=== PATIENT | female | born 1985 | race Caucasian/White ===

== ENCOUNTER 2017-09-04 12:40 | Emergency (ER) | payer MEDICAID, SELFPAY ==
[2017-09-04 12:42] VITALS: BP 117/71; PULSE 83; RESP 18; TEMP 36.6; O2SAT 100; BMI 23.3
--- NOTE | 2017-09-04 13:30 | US_ITS ---
STUDY: ULTRASOUND TRANSVAGINAL CLINICAL: Female, 32 years old. Bleeding TECHNIQUE: Transvaginal COMPARISON: None. FINDINGS: Normal uterine size measuring 9.1 x 5.7 x 4.3 cm in maximal craniocaudal dimension. There are no myometrial masses. Normal endometrial thickness measuring 9 mm. Endometrial echoes are hyperechoic. There are no endometrial masses, and there is no fluid in the endometrial cavity. Nabothian cyst of the uterine cervix. Normal right ovary, measuring 3.4 x 1.9 x 1.9 cm. There are multiple follicles without a dominant cyst. Normal left ovary, measuring 3.0 x 1.7 x 1.5 cm. There are multiple follicles without a dominant cyst. There is mild free fluid in the pelvis. Polycystic ovary disease: No. US/Transvaginal Non- IMPRESSION: Mild free fluid, which could be physiologic. No other significant finding. Electronically Signed: James Golden MD at 15:41 EDT , Service support ,
--- NOTE | 2017-09-04 13:33 | ED.DCSUM_ITS ---
- ER Visit Summary Date of Service: 09/04/17 Chief Complaint: Vaginal bleeding and History of Present Illness: The patient is a 32 F presenting with vaginal bleeding which started today. She states this initially was similar to her period and is now only spotting. She believes she is 3-4 weeks . She is Ab1. She took a home test last week which was positive. Her last she miscarried at [address] Costa. She denies pelvic pain. Denies other complaints. Physical Examination: Vitals are stable. Patient is afebrile. Alert no acute distress. HEENT exam is unremarkable. Neck is supple. Lungs are clear and equal bilaterally. Heart is regular rate and rhythm. Abdomen is soft nontender nondistended. No guarding or rebound Extremities are unremarkable. Skin is warm and dry. No focal neurologic deficit. Remainder of exam is unremarkable. Emergency Department Course and Treatment: HCG quant 4. Blood type A negative. Ultrasound shows mild free fluid which could be physiologic with no other acute finding. Patient declined pelvic exam in the emergency department. Discussed with Dr. Costa, he does not feel she needs rhogam. She will follow- up in the office. Advised return ED if worsening complaints. Disposition: Discharge home Impression: Threatened miscarriage This note was generated with [employer] dictation software. It may contain incorrect words, spelling, and punctuation that were not noted in review of the chart prior to signing ED Disposition - Plan for ED Patient: Chief Complaint: Vag Bld, Preg Referrals: Care Physician,No Primary [Primary Care Provider] -
[2017-09-04 14:23] LABS: hCG Titer Quant., Serum 4 mIU/mL (<9 non-preg)
--- NOTE | 2017-09-04 16:38 | ED.DEP ---
ED Disposition - Plan for ED Patient: Chief Complaint: Vag Bld, Preg Instructions: ED Miscarriage Poss Referrals: Care Physician,No Primary [Primary Care Provider] - Frankie Costa MD [STAFF PHYSICIAN] -
[2017-09-04 16:44] VITALS: BP 125/67; PULSE 71; RESP 16; O2SAT 98
== END 2017-09-04 16:45 | disposition home or self-care (01) ==
PROVIDERS: Emergency Provider Emergency Medicine
DX: O20.0 Threatened abortion (principal); Z72.0 Tobacco use
CPT/HCPCS: 36415; 76830; 84702; 86900; 93976; 99282

== ENCOUNTER → 2017-11-14 15:00 | Outpatient (CLI) | payer MEDICAID, SELFPAY ==
--- NOTE | 2017-11-14 15:00 | DT_ITS ---
This patient was seen during an EMR downtime November 12, 2017 - November 19, 2017. This patient may have a combination of paper and electronic documentation or all paper documentation. All documentation is viewable within the e-chart portion of [employer] for each patient visit.
[2017-11-17 09:48] LABS: Chlamydia Trachomatis by PCR Negative (Negative); Neisserai gonorrhoeae by PCR Negative (Negative); Probe Check PASS; Sample Adequacy Control PASS; Specimen Processing Control PASS
[2017-11-27 15:41] LABS: HPV APTIMA, High Risk Negative (Negative)
== END ==
PROVIDERS: Visit Provider Obstetrics & Gynecology
DX: Z12.4 Encounter for screening for malignant neoplasm of cervix (principal); Z11.3 Encounter for screening for infections with a predominantly sexual mode of transmission; N91.2 Amenorrhea, unspecified
CPT/HCPCS: 36415; 84702; 87491; 87591; 88175; G0145

== ENCOUNTER → 2017-11-21 15:25 | Outpatient (CLI) | payer MEDICAID, SELFPAY ==
[2017-11-21 17:04] LABS: Absolute Lymphocyte Count 1.68 X10^3/ul (0.83-4.51); Absolute Neutrophil Count 5.7 X10^3/uL (2.0-7.7); Basophil# 0.03 X10^3/uL; Basophil% 0.4 % (0-1); Eosinophil# 0.23 X10^3/uL; Eosinophils% 2.8 % (0-5); Hematocrit 39.1 % (37-47); Hemoglobin 13.2 g/dl (12.0-15.0); Lymphocyte # 1.68 X10^3/ul (4.0); Lymphocyte % 20.1 % (19-41); Mean Corp Hgb Conc 33.8 g/gl (32-36); Mean Corpuscular Hgb 29.1 pg (27.0-32.0); Mean Corpuscular Volume 86.3 fL (81-99); Monocyte# 0.67 X10^3/uL; Neutrophil # 5.73 X10^3/uL (2.7-7.7); Neutrophil % 68.5 % (47-70); Platelet Count 230 K/mm3 (150-450); RBC Distribution Width CV 13.8 % (11.6-14.6); RBC Distribution Width SD 43.6 fl (35.1-43.9); Red Blood Count 4.53 M/mm3 (4.2-5.4); White Blood Count 8.4 K/mm3 (4.4-11.0)
[2017-11-21 17:06] LABS: Color, Urine Yellow (Yellow); Glucose, Dipstick Normal (Normal); Ketone-Dipstick 5 mg/dl (Negative); Leukocyte Esterase-Dipstick 500 /ul (Negative); Nitrite-Dipstick Positive (Negative); Occult Blood-Urine 10 /ul (Negative); Protein-Dipstick 15 mg/dl (Negative); Specific Gravity, Urine 1.025 (1.002-1.030); Urine Bilirubin Dipstick Negative (Negative); Urine Clarity Sl. Cloudy (Clear); Urine Urobilinogen 1 mg/dl (Normal)
[2017-11-21 17:10] LABS: POSITIVE COUNT NO; POSITIVE DIFFERENTIAL NO; POSITIVE MORPHOLOGY NO
[2017-11-21 17:22] LABS: Thyroid Stim Hormone (TSH) 0.84 uIU/mL (0.358-3.74)
[2017-11-21 17:48] LABS: Amphetamine Urine VISTA NEGATIVE (<1000 ng/mL); Barbiturate Urine VISTA NEGATIVE (< 200 ng/mL); Benzodiazepine Urine VISTA NEGATIVE (< 200 ng/mL); Cocaine Urine VISTA NEGATIVE (< 300 ng/mL); Ecstacy Urine VISTA NEGATIVE (< 500 ng/mL); Methadone Urine VISTA NEGATIVE (< 300 ng/mL); PCP Urine VISTA NEGATIVE (< 25 ng/mL); THC Urine VISTA NEGATIVE (< 50 ng/mL); Vista UDS pH Range 5
[2017-11-21 17:49] LABS: COTININE Drug Screen Negative (<200 ng/mL)
[2017-11-21 18:04] LABS: HIV - WCH Non-Reactive (Nonreactive)
[2017-11-23 03:47] LABS: Prenatal RPR NONREACTIVE (NONREACTIVE)
[2017-11-23 07:07] LABS: HEPATITIS B SURFACE AG Negative (Negative); Hep C Antibodies <0.1 s/co ratio (0.0-0.9)
== END ==
PROVIDERS: Visit Provider Obstetrics & Gynecology
DX: Z34.81 Encounter for supervision of other normal pregnancy, first trimester (principal)
CPT/HCPCS: 36415; 80307; 81002; 84443; 85025; 86703; 86762; 86803; 87340

== ENCOUNTER → 2018-03-13 14:13 | Outpatient (CLI) | payer MEDICAID, SELFPAY ==
[2018-03-13 16:20] LABS: Hematocrit 31.8 % (37-47); Hemoglobin 10.6 g/dl (12.0-15.0); Mean Corp Hgb Conc 33.3 g/gl (32-36); Mean Corpuscular Hgb 29.9 pg (27.0-32.0); Mean Corpuscular Volume 89.6 fL (81-99); Mean Platelet Vol. 10.3 fl (6.2-12.0); Platelet Count 255 K/mm3 (150-450); RBC Distribution Width CV 13.4 % (11.6-14.6); RBC Distribution Width SD 42.6 fl (35.1-43.9); Red Blood Count 3.55 M/mm3 (4.2-5.4); White Blood Count 11.8 K/mm3 (4.4-11.0)
[2018-03-13 16:21] LABS: Scan Indicated on CBC? Y/N NO
[2018-03-13 16:29] LABS: Glucose Challenge Gest 1H 50g 95 mg/dL (70-140)
== END ==
PROVIDERS: Visit Provider Obstetrics & Gynecology
DX: Z34.82 Encounter for supervision of other normal pregnancy, second trimester (principal)
CPT/HCPCS: 36415; 82950; 85027; 86850

== ENCOUNTER 2018-03-16 02:13 | Emergency (ER) | payer MEDICAID, SELFPAY ==
[2018-03-16 02:14] VITALS: BP 144/60; PULSE 114; RESP 16; TEMP 37.4; O2SAT 98; BMI 31.1
[2018-03-16 03:39] LABS: Red Blood Cells-Urine 0 SEEN /hpf (0-5); White Blood Cells 0 SEEN /hpf (0-5)
[2018-03-16 03:40] LABS: Color, Urine Yellow (Yellow); Glucose, Dipstick Normal (Normal); Ketone-Dipstick Negative (Negative); Leukocyte Esterase-Dipstick 100 /ul (Negative); Nitrite-Dipstick Positive (Negative); Occult Blood-Urine 10 /ul (Negative); Protein-Dipstick 30 mg/dl (Negative); Specific Gravity, Urine 1.015 (1.002-1.030); Urine Bilirubin Dipstick Negative (Negative); Urine Clarity Cloudy (Clear); Urine Urobilinogen Normal (Normal)
[2018-03-16 03:55] VITALS: BP 141/63; PULSE 106; RESP 18; TEMP 37.1; O2SAT 95
[2018-03-16 03:55] LABS: Bacteria 3+ /hpf (None Seen); Mucous, Urine 2+ /hpf (<or=2+); Squamous Epithelial Cells - UA 10-25 SEEN /hpf (5-10)
--- NOTE | 2018-03-16 04:04 | ED.VISSUMM ---
- ER Visit Summary Date of Service: 03/16/18 Chief Complaint: Shivering and fever History of Present Illness: The patient is a 33 F who is Ab1 at 28 weeks. Presents with shivering and fevers overnight. No other associated symptoms. Patient was exposed to her significant other who had an upper respiratory infection with fevers. Denies any issues with the . She does have positive movements. She has had regular OB care. Denies any abdominal pain, bleeding, or discharge. Physical Examination: Blood pressure 144/60. Heart rate 114. Otherwise vitals unremarkable. Patient is sitting upright and appears comfortable. Alert and oriented. Calm and cooperative. Skin appears normal in color without pallor or diaphoresis. HEENT exam unremarkable. Heart slightly tachycardic but regular. Lungs clear in all finley. Abdomen gravid and nontender. Extremities nontender with no edema. Test Results: Influenza test was negative. Urinalysis showed bacteria, positive nitrites, positive leuk esterase, but white count and red cell counts were 0. Urine culture was sent. Emergency Department Course and Treatment: Patient has had shivering and a subjective fever for few hours tonight. She really has no other symptoms. Because of her , I did check an influenza test and urinalysis. We will send a culture. I will cover with Macrobid given her bacteriuria. Her repeat blood pressure was 141/63 and heart rate was 106. She continues to appear well. She is still having movements. I counseled her about her blood pressure. She has not had hypertension in the past. No history of gestational hypertension. No history of preeclampsia or eclampsia. No other concerning signs or symptoms like edema, headache, vision changes, or abdominal pain. I believe she is appropriate for outpatient follow-up regarding her blood pressure. She was advised to call her OB. Patient was also advised to monitor for new or worsening symptoms. Return for any issues. Treatment Plan: As above Disposition: Discharged Impression: 1. Bacteriuria 2. Hypertension This note was generated with [employer] software. It may contain incorrect words, spelling, and punctuation that were not noted in review of the chart prior to signing ED Disposition - Plan for ED Patient: Chief Complaint: General Illness Referrals: Care Physician,No Primary [Primary Care Provider] -
--- NOTE | 2018-03-16 04:11 | DCINST.ED_ITS ---
ED Disposition - Plan for ED Patient: Chief Complaint: General Illness Instructions: ED Fever Unconf Cause Prescriptions: Nitrofurantoin Macrocrystals [Macrobid] 100 mg PO Q12 #14 cap Additional Instructions: follow up with your instructor robotics
[2018-03-16] MEDS: Nitrofurantoin Macrocrystals 100 MG Capsule PO (04:15)
== END 2018-03-16 04:30 | disposition home or self-care (01) ==
PROVIDERS: Emergency Provider Emergency Medicine; Family Provider Obstetrics & Gynecology
DX: O26.893 Other specified pregnancy related conditions, third trimester (principal); R82.71 Bacteriuria; O16.3 Unspecified maternal hypertension, third trimester; Z3A.28 28 weeks gestation of pregnancy; Z87.891 Personal history of nicotine dependence
CPT/HCPCS: 81001; 87086; 87088; 87804; 99284

== ENCOUNTER 2018-03-16 18:44 | Emergency (ER) | payer MEDICAID, SELFPAY ==
[2018-03-16 18:45] VITALS: BP 130/69; PULSE 138; RESP 17; TEMP 37.6; O2SAT 95
[2018-03-16] MEDS: 0.9% Normal Saline 1,000 ML 999 ML IV (19:10)
[2018-03-16 19:41] LABS: Absolute Lymphocyte Count 0.92 X10^3/ul (0.83-4.51); Absolute Neutrophil Count 13.6 X10^3/uL (2.0-7.7); Basophil# 0.02 X10^3/uL; Basophil% 0.1 % (0-1); Differential Indicated SCAN CRITERIA MET; Eosinophil# 0.03 X10^3/uL; Eosinophils% 0.2 % (0-5); Hemoglobin 10.4 g/dl (12.0-15.0); Lymphocyte # 0.92 X10^3/ul (4.0); Lymphocyte % 5.7 % (19-41); Mean Corp Hgb Conc 33.5 g/gl (32-36); Mean Corpuscular Hgb 29.2 pg (27.0-32.0); Mean Corpuscular Volume 87.1 fL (81-99); Mean Platelet Vol. 9.3 fl (6.2-12.0); Monocyte# 1.65 X10^3/uL; Monocyte% 10.1 % (0-10); Neutrophil % 83.6 % (47-70); POSITIVE COUNT NO; POSITIVE DIFFERENTIAL YES; POSITIVE MORPHOLOGY NO; Platelet Count 222 K/mm3 (150-450); RBC Distribution Width CV 13.5 % (11.6-14.6); Red Blood Count 3.56 M/mm3 (4.2-5.4); White Blood Count 16.3 K/mm3 (4.4-11.0)
[2018-03-16 19:48] LABS: BUN 7 mg/dL (7-18); EST Glomerular Filtration Rate 100 mL/min (>60); Estimated Creatinine Clearance 100.94 ml/min; Glucose 126 mg/dL (74-106)
[2018-03-16 19:49] LABS: Anion Gap 9 (5-15); BUN/Creat Ratio 9.9 RATIO (10-20); Calcium,Total 8.6 mg/dL (8.5-10.1); Chloride 100 mmol/L (98-107); Est Glom Filt Rate - Afr Amer 121 mL/min (>60); Potassium 3.4 mmol/L (3.5-5.1); Sodium Level 132 mmol/L (136-145)
--- NOTE | 2018-03-16 20:08 | ED.VISSUMM ---
- ER Visit Summary Date of Service: 03/16/18 Chief Complaint: Fever History of Present Illness: The patient is a 33 F who presents with fever. She was seen last night and diagnosed with a urinary tract infection. She was given Macrobid. Her temperature tonight was 101.4 degrees. She has been using Tylenol at home. She is currently 28 weeks gestation. She is G6, P4 Ab1. She states that she has been having some chills. She denies any pulmonary symptoms like cough or sputum production. No abdominal pain. She does have a history of a placental abruption she states that the physician last night told her it could either be a combination of the UTI or possibly a viral syndrome. Physical Examination: Vital signs reviewed. HEENT exam unremarkable. Heart is tachycardic and regular rhythm without murmurs. Lungs are clear all station bilaterally. Abdomen soft with no tenderness. It is gravid. exam is deferred. Skin exam normal. Neurologic exam normal. Test Results: White blood cell count 16.3, hemoglobin 10.4, sodium 132, potassium 3.4, glucose 126 Emergency Department Course and Treatment: Patient does have a leukocytosis. Because of the urinary tract infection I will give her 1 dose of IV Rocephin here. She will continue the Macrobid at home. It is definitely a possibility that this is still a viral illness. I do not feel she requires admission to the hospital as she looks very well. She has no abdominal pain and has had good movements. I do not feel that this represents any intra-abdominal pathology. She will need to follow-up with her SEPTIC TANK SETTER. She will continue Tylenol for the fever at home. Treatment Plan: [] Disposition: Discharge Impression: UTI, fever This note was generated with [employer] dictation software. It may contain incorrect words, spelling, and punctuation that were not noted in review of the chart prior to signing ED Disposition - Plan for ED Patient: Chief Complaint: Fever Referrals: Care Physician,No Primary [Primary Care Provider] -
--- NOTE | 2018-03-16 20:10 | ED.DEP ---
ED Disposition - Plan for ED Patient: Disposition: Home or Assisted Living Chief Complaint: Fever Instructions: ED UTI Cystitis Female Referrals: Care Physician,No Primary [Primary Care Provider] -
[2018-03-16] MEDS: Ceftriaxone 1 GM/50 ML BAG IV (20:24)
[2018-03-16 20:25] LABS: Differential Comment SCANNED
[2018-03-16 20:34] VITALS: BP 125/71; PULSE 104; RESP 16; O2SAT 97
[2018-03-18 12:53] LABS: Pathologist Review Reviewed
== END 2018-03-16 20:38 | disposition home or self-care (01) ==
PROVIDERS: Emergency Provider Emergency Medicine
DX: O23.43 Unspecified infection of urinary tract in pregnancy, third trimester (principal); O16.3 Unspecified maternal hypertension, third trimester; Z87.891 Personal history of nicotine dependence; Z3A.28 28 weeks gestation of pregnancy
CPT/HCPCS: 80048; 81001; 85025; 87086; 87088; 87186; 87804; 96361; 96374; 99283; 99284; J7030

== ENCOUNTER → 2018-05-15 14:26 | Outpatient (CLI) | payer MEDICAID, SELFPAY | PROVIDERS: Visit Provider Obstetrics & Gynecology | DX: Z36.85 Encounter for antenatal screening for Streptococcus B (principal) | CPT/HCPCS: 87081 ==

== ENCOUNTER 2018-05-29 17:00 | Outpatient (CLI) | payer MEDICAID, SELFPAY ==
[2018-05-29 17:35] VITALS: BMI 32.3
[2018-05-29 18:04] LABS: ROM Internal Control Test YES-OK TO RESULT pt. (Internal QC); ROM Patient Test Negative (Negative)
--- NOTE | 2018-05-30 07:34 | OB.TRI.NOTE ---
History of Present Illness Date of Service: 05/29/18 Was patient seen by the physician?: No Reason For Visit: R/O LABOR Date of Service: 05/29/18 Final SERVANDO: 06/09/18 Final SERVNADO Source: US <20 weeks Gestational age: 38 Weeks and 4 Days History of Present Illness: C/O of light spotting, possible SROM, mild contractions Allergies ciprofloxacin [From Cipro] Allergy (Verified 05/29/18 17:30) Unknown ciprofloxacin HCl [From Cipro] Allergy (Verified 05/29/18 17:30) Unknown sulfamethoxazole [From Bactrim] Allergy (Verified 05/29/18 17:30) Swelling trimethoprim [From Bactrim] Allergy (Verified 05/29/18 17:30) Swelling Laboratory Studies: Laboratory Tests 05/29/18 Range/Units 17:30 Vag Amniotic Fld Detect Negative (Negative) Physical Exam General: Alert, Oriented x3, Cooperative, No apparent distress Cardiovascular: Regular rate, Regular Rhythm Lungs: Clear to auscultation, Normal air movement Abdomen: Soft, Non Tender, Non-Distended, Gravid, Appropriate for Gestational Age Extremities:: No edema Neurological: Neuro grossly intact CLINICAL NURSING COORDINATOR: Normal external genitalia Estimated gestational size: Appropriate for gestational size Presentation: Cephalic Cervix Dilation (cm): 3 Station: -2 Effacement (%): 50 NST - FHR Rate Baby A Baseline: 150s Variability:: Moderate Accelerations:: 15 x 15 Decelerations:: None NST Reactive:: Yes, Appropriate for gestational age FHR Category:: Category I Uterine Activity:: irregular Impression/Plan No cervical guide changer almost 3 hours of observation. ROM+ testing negative. Reassuring heart rate tracing. Will return if has increasing symptoms of labor.
--- NOTE | 2018-05-30 07:37 | OB.TRI.HP_ITS ---
History of Present Illness Date of Service: 05/29/18 Was patient seen by the physician?: No Reason For Visit: R/O LABOR Date of Service: 05/29/18 Final SERVANDO: 06/09/18 Final SERVANDO Source: US <20 weeks Gestational age: 38 Weeks and 4 Days History of Present Illness: C/O of light spotting, possible SROM, mild contractions Allergies ciprofloxacin [From Cipro] Allergy (Verified 05/29/18 17:30) Unknown ciprofloxacin HCl [From Cipro] Allergy (Verified 05/29/18 17:30) Unknown sulfamethoxazole [From Bactrim] Allergy (Verified 05/29/18 17:30) Swelling trimethoprim [From Bactrim] Allergy (Verified 05/29/18 17:30) Swelling Laboratory Studies: Laboratory Tests 05/29/18 Range/Units 17:30 Vag Amniotic Fld Detect Negative (Negative) Physical Exam General: Alert, Oriented x3, Cooperative, No apparent distress Cardiovascular: Regular rate, Regular Rhythm Lungs: Clear to auscultation, Normal air movement Abdomen: Soft, Non Tender, Non-Distended, Gravid, Appropriate for Gestational Age Extremities:: No edema Neurological: Neuro grossly intact WINCHMAN/CRANE OPERATOR: Normal external genitalia Estimated gestational size: Appropriate for gestational size Presentation: Cephalic Cervix Dilation (cm): 3 Station: -2 Effacement (%): 50 NST - FHR Rate Baby A Baseline: 150s Variability:: Moderate Accelerations:: 15 x 15 Decelerations:: None NST Reactive:: Yes, Appropriate for gestational age FHR Category:: Category I Uterine Activity:: irregular Impression/Plan No cervical mold insert changer almost 3 hours of observation. ROM+ testing negative. Reassuring heart rate tracing. Will return if has increasing symptoms of labor.
== END 2018-05-29 20:40 | disposition home or self-care (01) ==
LOC: WPOUT 17:28 → WP 17:29
PROVIDERS: Referring Provider Obstetrics & Gynecology; Visit Provider Obstetrics & Gynecology
DX: Z34.93 Encounter for supervision of normal pregnancy, unspecified, third trimester (principal); Z3A.38 38 weeks gestation of pregnancy
CPT/HCPCS: 59025; 59050; 84112; 99218; G0378

== ENCOUNTER 2018-06-05 06:24 | Inpatient (IN) | payer MEDICAID, SELFPAY ==
[2018-06-05 06:57] VITALS: BMI 32.8
[2018-06-05] MEDS: Lactated Ringers 1,000 ML 50 ML IV ×2 (06:57)
[2018-06-05 07:31] LABS: Hemoglobin 8.9 g/dl (12.0-15.0); Mean Corp Hgb Conc 31.8 g/gl (32-36); Mean Corpuscular Volume 81.9 fL (81-99); Mean Platelet Vol. 9.9 fl (6.2-12.0); Platelet Count 190 K/mm3 (150-450); RBC Distribution Width CV 14.7 % (11.6-14.6); RBC Distribution Width SD 43.3 fl (35.1-43.9); Red Blood Count 3.42 M/mm3 (4.2-5.4); White Blood Count 7.9 K/mm3 (4.4-11.0)
[2018-06-05 07:32] LABS: Scan Indicated on CBC? Y/N NO
[2018-06-05] MEDS: Oxytocin 30 units/NS 500 ml 30 UNITS/500 ML IV.SOLN IV (07:40)
[2018-06-05] MEDS: Oxytocin 30 units/NS 500 ml 30 UNITS/500 ML IV.SOLN 334 UNITS IV (12:50)
--- NOTE | 2018-06-05 13:11 | PCM.OB.VAG ---
Vaginal Delivery Maternal Presentation: Active Labor, Spontaneous Rupture of Membranes Amniotic Membrane Rupture Type: Spontaneous at home Amniotic Fluid Description: Clear Final SERVANDO: 06/09/18 Final SERVANDO Source: US <20 weeks Gestational age: 39 Weeks and 3 Days Date of Procedure: 06/05/18 Pre-Operative Diagnosis: IUP Post-Operative Diagnosis: IUP Surgery/ Procedure Performed: Spontaneous Vaginal Delivery Type of Anesthesia: None Description of Procedure: Spontaneous vaginal delivery of a viable female with Apgars of 9/9 from an occiput anterior presentation with clear amniotic fluid and normal three-vessel placenta. No episiotomy. Second-degree midline laceration repaired with 3-0 Rapide suture. Sponge counts okay. Delivery physician: Frankie Costa MD. Presentation: Vertex Placental Delivery Description: Spontaneous Placenta Disposition: [facility] Cord Vessel Description: 3 Vessels Cord Gases drawn per routine: ABG Cord Entanglement: None Estimated Blood Loss: 250 cc A gender: Female (1 minute): 9 (5 minute): 9 Episiotomy Description: None Laceration: Midline, Perineal Extension/lac, 2nd degree Medications given after delivery: IV Pitocin Complications: None
--- NOTE | 2018-06-05 13:14 | OP.PCM_ITS ---
Vaginal Delivery Maternal Presentation: Active Labor, Spontaneous Rupture of Membranes Amniotic Membrane Rupture Type: Spontaneous at home Amniotic Fluid Description: Clear Final SERVANDO: 06/09/18 Final SERVANDO Source: US <20 weeks Gestational age: 39 Weeks and 3 Days Date of Procedure: 06/05/18 Pre-Operative Diagnosis: IUP Post-Operative Diagnosis: IUP Surgery/ Procedure Performed: Spontaneous Vaginal Delivery Type of Anesthesia: None Description of Procedure: Spontaneous vaginal delivery of a viable female with Apgars of 9/9 from an occiput anterior presentation with clear amniotic fluid and normal three- vessel placenta. No episiotomy. Second-degree midline laceration repaired with 3-0 Rapide suture. Sponge counts okay. Delivery physician: Frankie Costa MD. Presentation: Vertex Placental Delivery Description: Spontaneous Placenta Disposition: [facility] Cord Vessel Description: 3 Vessels Cord Gases drawn per routine: ABG Cord Entanglement: None Estimated Blood Loss: 250 cc A gender: Female (1 minute): 9 (5 minute): 9 Episiotomy Description: None Laceration: Midline, Perineal Extension/lac, 2nd degree Medications given after delivery: IV Pitocin Complications: None
--- NOTE | 2018-06-05 13:17 | DCINST_ITS ---
Discharge Diet: No Restrictions Discharge Activity: May Shower, May Take a Tub Bath May resume sexual activity in: 4-6 weeks Additional Activity Instructions:: Nothing in the vagina for 4-6 weeks. You may return to work/school in 6 weeks. Call your doctor if you observe: Fever of 101 or Higher, Inability to urinate, Inability to have a bowel movement, Using more than one pad per hour Additional Instructions: If you experience any of the following, contact your healthcare provider. * Bleeding that soaks a pad every hour for 2 hours * Unrelieved incision or abdominal pain * Swelling, redness, discharge or bleeding from your incision or episiotomy site * Your incision begins to separate * Problems urinating (including inability to urinate or burning while urinating). * Visual changes * Severe headache * Flu-like symptoms * Pain or redness in one of both of your breasts * Pain, warmth, tenderness or swelling in your legs, especially the calf area * Frequent nausea and vomiting * Symptoms of depression or anxiety If you experience any of the following, call 911 or go to the nearest Emergency Room. * Chest pain * Problems breathing * Seizure activity * Partial or complete paralysis of a body part, slurred speech, weakness or drooping of the face, or a sudden inability to walk or hold your balance Allergies/Adverse Reactions: Allergies ciprofloxacin [From Cipro] Allergy (Verified 06/05/18 07:24) Unknown ciprofloxacin HCl [From Cipro] Allergy (Verified 06/05/18 07:24) Unknown sulfamethoxazole [From Bactrim] Allergy (Verified 06/05/18 07:24) Swelling trimethoprim [From Bactrim] Allergy (Verified 06/05/18 07:24) Swelling Medications to take at Discharge Pediatric Multivitamin No.49 [Flintstones Gummies] 2 tab.chew PO DAILY 05/29/18 Please Follow Up With: Frankie Costa MD - [phone] When: Call to make an appointment with your doctor in 6 weeks. Primary Care Physician: Care Physician,No Primary [Primary Care Provider] - Test Results: Test results from this visit will be discussed in further detail at your follow- up appointment, if applicable.
[2018-06-05] MEDS: Oxytocin 30 units/NS 500 ml 30 UNITS/500 ML IV.SOLN 167 UNITS IV (13:20)
[2018-06-05 16:00] VITALS: BP 121/68; PULSE 99; RESP 16; TEMP 37.1; O2SAT 98
[2018-06-05 19:50] VITALS: BP 149/71; PULSE 74; RESP 16; TEMP 36.6; O2SAT 97
[2018-06-05 23:55] VITALS: BP 119/57; PULSE 70; RESP 16; TEMP 36.8; O2SAT 98
[2018-06-06 04:30] VITALS: BP 141/67; PULSE 70; RESP 14; TEMP 36.6; O2SAT 96
[2018-06-06] MEDS: Ibuprofen 600 MG Tablet PO ×2 (04:57→14:25)
[2018-06-06 09:20] VITALS: BP 130/65; PULSE 88; RESP 18; TEMP 36.2
--- NOTE | 2018-06-06 09:48 | PCM.PN.OB ---
Subjective: Patient without complaints. Minimal vaginal bleeding. Bottle feeding going well. Wants to go home today if possible. - Physical Exam Vital Signs Temp Pulse Resp BP Pulse Ox 97.1 F L 88 18 130/65 H 96 06/06/18 09:20 06/06/18 09:20 06/06/18 09:20 06/06/18 09:20 06/06/18 04:30 Oxygen Delivery Method Room Air Weight: 203 lb 0.732 oz Body Mass Index (BMI) 32.8 Intake and Output for Last 24 Hours 06/04/18 06/05/18 06/06/18 23:59 23:59 23:59 Intake Total 1440 / 1440 Output Total 1500 / 1500 Balance -60 / -60 Laboratory Tests Past 24 Hrs 06/05/18 06/05/18 06:57 13:53 Blood Type A NEGATIVE Antibody Screen NEGATIVE Screen NEGATIVE Baby's Blood Type A POSITIVE Baby's DARWIN NEGATIVE Medical Necessity - Tobacco Use Smoking Status: Former smoker Assessment/Plan All Active Problems Threatened in second trimester (Acute) Odontalgia (Acute) Doing well post day #1. Will release to home with routine instructions.
[2018-06-06 12:09] VITALS: BP 121/79; PULSE 77; RESP 18; TEMP 36.7
[2018-06-06 15:23] VITALS: BP 121/79; PULSE 77; RESP 18; TEMP 36.7
== END 2018-06-06 15:50 | disposition home or self-care (01) | DRG 560 ==
PROVIDERS: Admitting Provider Obstetrics & Gynecology; Referring Provider Obstetrics & Gynecology; Visit Provider Obstetrics & Gynecology
DX: O70.1 Second degree perineal laceration during delivery (principal); Z3A.39 39 weeks gestation of pregnancy; Z37.0 Single live birth; Z87.891 Personal history of nicotine dependence
CPT/HCPCS: 59025; 59050; 85027; 85461; 86850; 86900; 90384; 99218; J7120; G0378; J2790

== ENCOUNTER 2018-08-10 10:43 | Emergency (ER) | payer MEDICAID, SELFPAY ==
[2018-08-10 10:44] VITALS: BP 154/106; PULSE 79; RESP 16; TEMP 36.1; O2SAT 100; BMI 27.6
--- NOTE | 2018-08-10 11:49 | ED.VISSUMM ---
- ER Visit Summary Date of Service: 08/10/18 Chief Complaint: Dental pain History of Present Illness: The patient is a 33 F presenting with dental pain. She states this started 5 days ago. She states she is taking ibuprofen at home and has continued pain. Denies fever. She does not currently have a dentist. Denies other complaints Physical Examination: Vitals are stable. Patient is afebrile. Alert no acute distress. HEENT exam left upper molar tenderness and decay. No fluctuance. No sublingual edema. Neck is supple. Lungs are clear and equal bilaterally. Heart is regular rate and rhythm. Extremities are unremarkable. Skin is warm and dry. Remainder of exam is unremarkable. Emergency Department Course and Treatment: Patient is given prescription for penicillin and Naprosyn. Advised to follow-up with dentist. She is given a dental referral list. Advised return to ED if worsening complaints. Disposition: Discharge home Impression: Odontalgia This note was generated with [employer] dictation software. It may contain incorrect words, spelling, and punctuation that were not noted in review of the chart prior to signing ED Disposition - Plan for ED Patient: Referrals: Care Physician,No Primary [Primary Care Provider] -
--- NOTE | 2018-08-10 11:51 | ED.DEP ---
ED Disposition - Plan for ED Patient: Instructions: ED Tooth Pain Prescriptions: Naproxen [Naprosyn] 500 mg PO BID PRN #20 tablet Penicillin V Potassium 500 mg PO 4X/DAY #40 tablet Referrals: Care Physician,No Primary [Primary Care Provider] -
[2018-08-10] MEDS: Penicillin Vk 250 MG Tablet 500 MG PO (12:01)
--- NOTE | 2018-08-10 13:38 | ED.DEP ---
ED Disposition - Plan for ED Patient: Disposition: Home or Assisted Living Instructions: ED Tooth Pain Prescriptions: Naproxen [Naprosyn] 500 mg PO BID PRN #20 tablet Clindamycin [Cleocin] 300 mg PO 4X/DAY #80 capsule Referrals: Care Physician,No Primary [Primary Care Provider] -
== END 2018-08-10 12:02 | disposition home or self-care (01) ==
LOC: ED 11:46
PROVIDERS: Emergency Provider Emergency Medicine
DX: K08.89 Other specified disorders of teeth and supporting structures (principal); K02.9 Dental caries, unspecified; Z72.0 Tobacco use
CPT/HCPCS: 99283

== ENCOUNTER 2018-10-01 14:11 | Emergency (ER) | payer MEDICAID, SELFPAY ==
[2018-10-01 14:13] VITALS: BP 143/87; PULSE 88; RESP 16; TEMP 36.1; O2SAT 98; BMI 27.4
--- NOTE | 2018-10-01 16:19 | EKG12_ITS ---
Test Reason : PALPS Blood Pressure : / mmHG Vent. Rate : 068 BPM Atrial Rate : 068 BPM P-R Int : 148 ms QRS Dur : 088 ms QT Int : 404 ms P-R-T Axes : -10 080 036 degrees QTc Int : 429 ms Normal sinus rhythm Normal ECG Confirmed by LACIE MCDONALD ([id number]), photograph editor ANGIE CASAS ([id number]) on 10/03/2018 10:53:53 AM Referred By: DILPI Confirmed By:LACIE MCDONALD
--- NOTE | 2018-10-01 16:25 | RAD_ITS ---
STUDY: X-RAY CHEST REASON FOR EXAM: Female, 33 years old. Difficulty breathing TECHNIQUE: AP portable view of the chest. COMPARISON: None. FINDINGS: The lungs are clear and expanded. There is no demonstrated pleural abnormality. Normal size heart. Normal mediastinum and neeru. Normal visualized pulmonary arteries. Normal visualized aortic arch and descending thoracic aorta. Normal visualized thoracic spine. Normal visualized ribs, clavicles, and shoulders. There is no demonstrated abnormality of the visualized soft tissue structures of the upper abdomen. RAD/Chest 1 View (Portable) IMPRESSION: Normal x-ray examination of the chest. Electronically Signed: Felix Bajwa MD at 16:44 EDT , Service support ,
[2018-10-01 16:50] VITALS: BP 132/80; PULSE 67; RESP 13; O2SAT 98
[2018-10-01] MEDS: 0.9% Normal Saline 1,000 ML 1000 ML IV (16:51)
--- NOTE | 2018-10-01 16:51 | ED.RN ---
PT REFUSED GI COCKTAIL, EXPLAINED TO PT THE REASONING FOR THE MEDICATION. SHE STILL REFUSED. NOTIFIED DR. CHERRY.
[2018-10-01 16:55] LABS: Absolute Lymphocyte Count 1.05 X10^3/ul (0.83-4.51); Absolute Neutrophil Count 5.3 X10^3/uL (2.0-7.7); Basophil# 0.02 X10^3/uL; Basophil% 0.3 % (0-1); Eosinophil# 0.12 X10^3/uL; Eosinophils% 1.8 % (0-5); Hematocrit 35.5 % (37-47); Hemoglobin 11.2 g/dl (12.0-15.0); Lymphocyte # 1.05 X10^3/ul (4.0); Lymphocyte % 15.4 % (19-41); Mean Corp Hgb Conc 31.5 g/gl (32-36); Mean Platelet Vol. 9.7 fl (6.2-12.0); Monocyte# 0.31 X10^3/uL; Monocyte% 4.5 % (0-10); Neutrophil # 5.34 X10^3/uL (2.7-7.7); Platelet Count 295 K/mm3 (150-450); RBC Distribution Width CV 15.2 % (11.6-14.6); RBC Distribution Width SD 42.4 fl (35.1-43.9); Red Blood Count 4.67 M/mm3 (4.2-5.4); White Blood Count 6.8 K/mm3 (4.4-11.0)
[2018-10-01 17:16] LABS: POSITIVE COUNT NO; POSITIVE DIFFERENTIAL NO; POSITIVE MORPHOLOGY NO
[2018-10-01 17:18] LABS: ALB/GLOB Ratio 1.3 RATIO (0.9-2.4); AST(SGOT) 17 U/L (15-37); Alanine Aminotransfer ALT/SGPT 38 U/L (13-56); Albumin, Serum 4.2 g/dL (3.2-5.0); Alkaline Phosphatase 85 U/L (45-117); Anion Gap 6 (5-15); BUN 6 mg/dL (7-18); BUN/Creat Ratio 7.6 RATIO (10-20); Calcium,Total 8.9 mg/dL (8.5-10.1); Chloride 105 mmol/L (98-107); Creatinine, Serum 0.79 mg/dL (0.55-1.02); EST Glomerular Filtration Rate 88 mL/min (>60); Est Glom Filt Rate - Afr Amer 106 mL/min (>60); Estimated Creatinine Clearance 93.05 ml/min; Globulin 3.3 g/dL (2.2-4.2); Glucose 95 mg/dL (74-106); Potassium 3.4 mmol/L (3.5-5.1); Protein, Total 7.5 g/dL (6.4-8.2); Sodium Level 138 mmol/L (136-145)
[2018-10-01 17:25] LABS: Internal QC Validated? YES +Cl - CLEAR BKGD; Pregnancy, Serum, hCG Quali. NEGATIVE Negative
--- NOTE | 2018-10-01 18:36 | ED.DCSUM_ITS ---
- ER Visit Summary Date of Service: 10/01/18 Chief Complaint: Abdominal pain History of Present Illness: The patient is a 33 F with no primary care physician. She reports that she has had long-standing episodes of abdominal pain. She states that the most recent one began 2:00 this afternoon while she was at rest. She states that it feels like she gets a pressure in her abdomen that then radiates into her chest. Her mouth then feels dry and she has a pocket of air in her throat that makes it difficult for her to breathe and she gets hot in the face. States that this seems to come on when she has a lack of sleep or has not been eating. Patient does report she has intolerance to spicy foods and tomato sauces. She denies any fatty food intolerance. She denies any exertional chest pain. Physical Examination: Vitals: Stable. Afebrile. General: Well-nourished and well-developed. Head: Normocephalic atraumatic. Neck: Supple, no lymphadenopathy. No JVD. Nontender. Cardiovascular: Regular rate and rhythm. No murmurs. Respiratory: No respiratory distress. Clear to auscultation bilaterally. Abdominal: Soft, mild epigastric tenderness to palpation, nondistended, normal bowel sounds. No guarding, rebound, or peritoneal signs. Back: Nontender. Extremities: Nontender, no edema. Skin: Normal color, no rash. Neurologic: Alert and oriented ?3. Cranial nerves II through XII are intact. Normal strength and sensation. Psych: Normal affect. Test Results: EKG is sinus at 60 with T wave inversion in lead III. Troponin is negative. Parents test negative. LFTs are normal. Chem-7 is more for potassium 3.4 and BUN is 6. CBC is more for an H&H 11.2 and 35.5, segmented neutrophils of 78, leukocytes of 15. Patient had a chest x-ray that was normal. Emergency Department Course and Treatment: Patient refused a GI cocktail. She is resting comfortably. Treatment Plan: Patient reports that she has a family history of esophageal cancer. She will be discharged with instructions to follow-up with Dr. Combs for further evaluation and treatment. She is also given the name of Dr. Brown who is on for no doc surgery to follow-up for potential endoscopy. In the meantime she be placed on Prilosec. Return to the emergency department for any worsening symptoms. Disposition: To home in improved and stable condition. Impression: 1. Epigastric pain, uncertain cause. This note was generated with [employer] dictation software. It may contain incorrect words, spelling, and punctuation that were not noted in review of the chart pr ior to signing ED Disposition - Plan for ED Patient: Disposition: Home or Assisted Living Instructions: ED Epigastric Pain [facility] Prescriptions: Omeprazole [Prilosec] 20 mg PO DAILY #30 capsule Referrals: Lalo Combs MD [STAFF PHYSICIAN] - 1 Week Marlon Brown MD [STAFF PHYSICIAN] - 1 Week
[2018-10-01 18:43] VITALS: BP 137/81; PULSE 69; RESP 15; O2SAT 98
== END 2018-10-01 18:45 | disposition home or self-care (01) ==
PROVIDERS: Emergency Provider Emergency Medicine
DX: R10.13 Epigastric pain (principal); Z72.0 Tobacco use; Z87.442 Personal history of urinary calculi
CPT/HCPCS: 71045; 80053; 84484; 84703; 85025; 93005; 96360; 96361; 99284; J7030; A4216

== ENCOUNTER 2018-11-13 14:04 | Emergency (ER) | payer MEDICAID, SELFPAY ==
[2018-11-13 14:06] VITALS: BP 152/121; PULSE 103; RESP 18; TEMP 37.4; O2SAT 98; BMI 27.6
[2018-11-13 14:31] VITALS: TEMP 37.4
[2018-11-13 14:43] LABS: Mucous, Urine 0 SEEN /hpf (<or=2+)
--- NOTE | 2018-11-13 15:02 | ED.DCSUM_ITS ---
- ER Visit Summary Date of Service: 11/13/18 Chief Complaint: [Dysuria] History of Present Illness: The patient is a 33 F [resents to the emergency department complaint dysuria that started yesterday. Patient complains of frequency and urgency. Patient's not small amount of blood in the urine. Urine seems darker and has followed her. Patient has history of UTIs. She denies any fever. She denies any nausea or vomiting. Patient does not think she is .] Physical Examination: [HEENT-PERRLA, EOMI. Cranial nerves II through XII grossly intact. TMs clear. Mucous membranes moist. No adenopathy. Cardiovascular-regular rate and rhythm without murmur or ectopy Lungs-clear to auscultation, chest wall stable without crepitus or subcu emphysema Abdomen-normoactive bowel sounds, soft. Patient has mild tenderness on palpation. There is no rebound, rigidity or perineal signs. No CVA tenderness on exam. Extremities-intact ?4, normal range of motion, normal pulses, atraumatic] Test Results: [This is obtained showed 500 leukocyte esterase as well as 25-50 WBC and 25-50 RBCs. Patient had +1 bacteria.] Emergency Department Course and Treatment: [She was started on Macrobid and Pyridium.] Treatment Plan: [Will be treated Macrobid Pyridium. Advised to follow-up with primary care physician 3 to 5 days. Advised to return if worsening pain, fever, vomiting, or conditions worsen anyway.] Disposition: [Discharged home stable condition] Impression: [Urinary tract infection] This note was generated with [employer] dictation software. It may contain incorrect words, spelling, and punctuation that were not noted in review of the chart prior to signing ED Disposition - Plan for ED Patient: Referrals: Care Physician,No Primary [Primary Care Provider] -
[2018-11-13 15:07] LABS: Color, Urine Yellow (Yellow); Glucose, Dipstick Normal (Normal); Ketone-Dipstick Negative (Negative); Leukocyte Esterase-Dipstick 500 /ul (Negative); Nitrite-Dipstick Negative (Negative); Occult Blood-Urine 250 /ul (Negative); Protein-Dipstick 100 mg/dl (Negative); Urine Bilirubin Dipstick Negative (Negative); Urine Clarity Cloudy (Clear); Urine Urobilinogen 1 mg/dl (Normal); Urine pH 6.5 (5.0 - 8.0)
[2018-11-13 15:16] LABS: Bacteria 1+ /hpf (None Seen); Red Blood Cells-Urine 25-50 SEEN /hpf (0-5); Squamous Epithelial Cells - UA 0-5 SEEN /hpf (5-10); White Blood Cells 25-50 SEEN /hpf (0-5)
--- NOTE | 2018-11-13 15:23 | ED.DEP ---
ED Disposition - Plan for ED Patient: Instructions: ED UTI Cystitis Female Prescriptions: Nitrofurantoin Macrocrystals [Macrobid] 100 mg PO Q12 #14 cap Phenazopyridine HCl [Pyridium] 200 mg PO BID PRN PRN #10 tab PRN Reason: Pain Referrals: Care Physician,No Primary [Primary Care Provider] - Paulie Cassidy DO [STAFF PHYSICIAN] - 3-5 Days
[2018-11-13] MEDS: Phenazopyridine 95 MG Tablet 190 MG PO (15:28)
[2018-11-13] MEDS: Nitrofurantoin Macrocrystals 100 MG Capsule PO (15:28)
[2018-11-13 15:34] VITALS: PULSE 98; RESP 17; TEMP 37.2; O2SAT 99
== END 2018-11-13 15:35 | disposition home or self-care (01) ==
PROVIDERS: Emergency Provider Emergency Medicine
DX: N39.0 Urinary tract infection, site not specified (principal); Z87.440 Personal history of urinary (tract) infections; Z72.0 Tobacco use
CPT/HCPCS: 81001; 87086; 87088; 87186; 99283

== ENCOUNTER 2021-01-17 17:34 | Emergency (ER) | payer MEDICAID, SELFPAY ==
[2021-01-17 17:37] VITALS: BP 128/69; PULSE 91; RESP 16; TEMP 37.3; O2SAT 97; BMI 31.0
--- NOTE | 2021-01-17 20:40 | EKG12_ITS ---
Test Reason : ABD PAIN Blood Pressure : / mmHG Vent. Rate : 072 BPM Atrial Rate : 072 BPM P-R Int : 136 ms QRS Dur : 086 ms QT Int : 412 ms P-R-T Axes : 048 080 025 degrees QTc Int : 451 ms Normal sinus rhythm Normal ECG Confirmed by QUEENIE ROCHE, APARNA ([id number]), marketing editor ANGIE CASAS ([id number]) on 01/19/2021 10:38:52 AM Referred By: SAMIR Confirmed By:APARNA JEROME MD
[2021-01-17 21:30] VITALS: BP 159/68; BP 159/73; BP 172/120; PULSE 108; PULSE 119; PULSE 128
[2021-01-17 21:36] LABS: Mucous, Urine 0 SEEN /hpf (<or=2+); Red Blood Cells-Urine 0 SEEN /hpf (0-5)
[2021-01-17 21:38] LABS: Color, Urine Yellow (Yellow); Glucose, Dipstick Normal (Normal); Ketone-Dipstick 50 mg/dl (Negative); Leukocyte Esterase-Dipstick 500 /ul (Negative); Nitrite-Dipstick Positive (Negative); Occult Blood-Urine 10 /ul (Negative); Protein-Dipstick Negative (Negative); Specific Gravity, Urine 1.015 (1.002-1.030); Urine Bilirubin Dipstick Negative (Negative); Urine Clarity Sl. Cloudy (Clear); Urine Urobilinogen Normal (Normal)
[2021-01-17 21:43] LABS: Bacteria 2+ /hpf (None Seen); Squamous Epithelial Cells - UA 10-25 SEEN /hpf (5-10)
[2021-01-17 21:44] LABS: White Blood Cells 5-10 SEEN /hpf (0-5)
[2021-01-17 21:55] LABS: Internal QC Validated? YES +Cl - CLEAR BKGD; Pregnancy, Urine Negative Negative
[2021-01-17] MEDS: Cephalexin 250 MG Capsule 500 MG PO (22:00)
[2021-01-17 22:01] VITALS: BP 138/75; PULSE 94; RESP 18; O2SAT 6
--- NOTE | 2021-01-17 22:03 | EDS_ITS ---
HPI History of Present Illness Chief Complaint: Abd Pain Informant: patient Narrative Narrative: Patient is a 35-year-old female that denies any significant past medical history presenting with lightheadedness and feeling like she is going to pass out. Patient states that for the past few years whenever she has a bowel movement she feels lightheaded and this makes her feel anxious. She notes that she started to have it when she is passing gas or with any pressure in her pelvis. She will then feel nauseous in her mouth and become dry. Patient states these episodes been happening with increased frequency lately. She called [facility] on-call line and actually spoke to GI nurse because they are associated with bowel movements and she has chronic bloating. They recommend she come to emergency room for further evaluation. Patient currently denies any symptoms. She also when she drinks water this does help with her symptoms. No other complaints at this time. [facility] Medical History Odontalgia Threatened in second trimester Home Medications cephalexin 500 mg PO BID #10 cap 01/17/21 [Rx Last Taken Unknown] ondansetron 4 mg PO Q6H PRN #14 tab 01/17/21 [Rx Last Taken Unknown] Allergy/AdvReac Type Severity Reaction Status Date / Time amoxicillin Allergy Itching Verified 01/17/21 17:36 ciprofloxacin [From Cipro] Allergy Unknown Verified 01/17/21 17:36 ciprofloxacin HCl Allergy Unknown Verified 01/17/21 17:36 [From Cipro] sulfamethoxazole Allergy Swelling Verified 01/17/21 17:36 [From Bactrim] trimethoprim [From Bactrim] Allergy Swelling Verified 01/17/21 17:36 Social History Smoking Status: Current every day smoker tobacco type: cigarettes ROS ROS ED Constitutional Constitutional ED: Reports other Details: Lightheaded ; Denies chills or fever(s) Eyes Eyes: Denies blurry vision or change in vision ENT ENT ED: Reports other Details: No pounding in the ears ; Denies ear pain, rhinorrhea or sore throat Cardiovascular Cardiovascular: Denies chest pain or palpitations Respiratory/Chest Respiratory/Chest: Reports dyspnea Gastrointestinal Gastrointestinal: Reports constipation, nausea and other Details: Bloating ; Denies abdominal pain, diarrhea or vomiting Genitourinary Genitourinary ED: Denies dysuria, hematuria or urinary frequency Musculoskeletal Musculoskeletal: Denies arthralgias or myalgias Integumentary Denies rash Neurologic Neurologic: Reports weakness; Denies headache(s) Psychiatric Psychiatric: Reports anxiety; Denies depression EXAM Physical Exam Const Vital Signs: 01/17/21 17:37 01/17/21 21:30 01/17/21 22:01 Temperature 99.1 F Temperature Source Temporal Pulse Rate 91 94 Pulse Rate [Lying] 108 H Pulse Rate [Sitting] 128 H Pulse Rate [Standing] 119 H Respiratory Rate 16 18 Blood Pressure 128/69 H 138/75 H Blood Pressure [Lying] 159/68 H Blood Pressure [Sitting] 159/73 H Blood Pressure [Standing] 172/120 H Blood Pressure Mean 88 96 Blood Pressure Mean [Lying] 98 Blood Pressure Mean [Sitting] 101 Blood Pressure Mean [Standing] 137 Pulse Ox 97 6 Oxygen Delivery Method Room Air Room Air Positive well nourished and well developed General Appearance ED: well developed HEENT Reports moist mucous membranes HEENT Narrative: Normocephalic, atraumatic Eyes PERRL and EOMs intact bilaterally Neck no lymphadenopathy, supple and no JVD Chest Wall inspection of chest normal Resp normal respiratory effort and clear to auscultation bilaterally Cardio regular rate, regular rhythm and no murmurs GI normal to inspection, nondistended, normoactive bowel sounds and non-tender Back/Spine no CVA tenderness Cervical Spine: Negative for cervical spine tenderness Thoracic Spine / Upper Back: Negative for thoracic spinal tenderness or paraspinal muscle tenderness Extremity normal to inspection Neuro oriented x3 and CN's II-XII intact bilaterally Sensorium / Orientation: alert Motor Exam: general weakness Psych mental status grossly normal Skin no rashes or lesions noted and no wounds MDM MDM MDM Narrative Medical decision making narrative: Patient evaluated for years of lightheaded episodes whenever she has a bowel movement which has been increasing in frequency. She notes she has chronic constipation and has been feeling more bloated. Patient is not had any acute symptom change in the last few days. Patient is orthostatic positive. EKG is normal. Urinalysis is consistent with urinary tract infection. Patient does have a history of UTIs. I wonder if this could be exacerbating her symptoms. She is overall well-appearing I do not suspect pyelonephritis. Urine culture sent and she started on Keflex. She is given first dose in the emergency room. I did discuss giving her IV fluids for her orthostasis however patient states she would like to just try oral hydration at home. She states she is anxious thinking about being in the emergency room. Lab Data Labs: Laboratory Results - last 24 hr 01/17/21 21:25 Urine Color Yellow Urine Clarity Sl. Cloudy Urine pH 6.0 Ur Specific [place] 1.015 Urine Protein Negative Urine Glucose (UA) Normal Urine Ketones 50 H Urine Occult Blood 10 H Urine Nitrite Positive H Urine Bilirubin Negative Urine Urobilinogen Normal Ur Leukocyte Esterase 500 H Urine RBC 0 SEEN Urine WBC 5-10 SEEN Ur Squamous Epith Cells 10-25 SEEN Urine Bacteria 2+ Urine Mucus 0 SEEN Urine Test Negative Rhythm Strip Rhythm Strip: Sinus Rhythm Rate: 72 Ectopy: None EKG Initial EKG: Attestation: I personally reviewed and interpreted this EKG as follows: Interpretation: Sinus Rhythm Comments: Normal sinus rhythm with a rate of 72 Normal axis Normal intervals Normal ST segments Discharge Plan Triage Chief Complaint: Abd Pain ED Provider: Malia Arnett Dx/Rx/DC Orders Clinical Impression: UTI (urinary tract infection), Orthostatic dizziness, Vasovagal near-syncope Instructions: ED Near-Fainting- Vagal Reaction, ED CYSTITIS Female Adult Prescriptions: New cephalexin 500 mg capsule 500 mg PO BID Qty: 10 RF: 0 ondansetron 4 mg tablet,disintegrating 4 mg PO Q6H PRN (Reason: nausea and vomiting) Qty: 14 RF: 0 Primary Care Provider: Care Physician,No Primary Referrals: Sammie Vaz MD [STAFF PHYSICIAN] - Care Physician,No Primary [Primary Care Provider] - Disposition Disposition: Home, Self Care
== END 2021-01-17 22:49 | disposition home or self-care (01) ==
PROVIDERS: Emergency Provider Emergency Medicine
DX: N39.0 Urinary tract infection, site not specified (principal); R55 Syncope and collapse; R42 Dizziness and giddiness; F17.210 Nicotine dependence, cigarettes, uncomplicated
CPT/HCPCS: 81001; 81025; 87086; 87088; 87186; 93005; 99283

== ENCOUNTER 2021-01-24 11:50 | Emergency (ER) | payer MEDICAID, SELFPAY ==
[2021-01-24 11:50] VITALS: BP 160/84; PULSE 92; RESP 18; TEMP 37; BMI 31.0
--- NOTE | 2021-01-24 13:24 | EX.ED.DYSGE1 ---
HPI History of Present Illness Chief Complaint: Complaint Informant: patient Narrative Narrative: 35-year-old female presenting with vaginal itching and discharge. Patient was recently treated for urinary tract infection with Keflex. She states she developed a vaginal discharge on the last day of her antibiotics. Her dysuria and UTI symptoms have resolved. She denies fever or other complaints. She denies possibility of . She had a negative test on January 17 and states she has not been sexually active since that time. Prior similar symptoms: No Recent Illness/Hospitalization: No PFSH PFSH Medical History Odontalgia Threatened in second trimester Home Medications cephalexin 500 mg PO BID #10 cap 01/17/21 [Rx Last Taken Unknown] ondansetron 4 mg PO Q6H PRN #14 tab 01/17/21 [Rx Last Taken Unknown] fluconazole [Diflucan] 150 mg PO .once #1 tab 01/24/21 [Rx Last Taken Unknown] Allergy/AdvReac Type Severity Reaction Status Date / Time amoxicillin Allergy Itching Verified 01/24/21 12:05 ciprofloxacin [From Cipro] Allergy Unknown Verified 01/24/21 12:05 ciprofloxacin HCl Allergy Unknown Verified 01/24/21 12:05 [From Cipro] sulfamethoxazole Allergy Swelling Verified 01/24/21 12:05 [From Bactrim] trimethoprim [From Bactrim] Allergy Swelling Verified 01/24/21 12:05 Social History Smoking Status: Current every day smoker tobacco type: cigarettes ROS ROS ED Constitutional Constitutional ED: Denies fever(s) Eyes Eyes: Denies change in vision ENT ENT ED: Denies rhinorrhea or sore throat Cardiovascular Cardiovascular: Denies chest pain or palpitations Respiratory/Chest Respiratory/Chest: Denies cough or dyspnea Gastrointestinal Gastrointestinal: Denies abdominal pain, diarrhea, nausea or vomiting Genitourinary Genitourinary ED: Denies dysuria Musculoskeletal Musculoskeletal: Denies myalgias Integumentary Denies rash Neurologic Neurologic: Denies headache(s) Psychiatric Psychiatric: Denies suicidal thoughts EXAM Physical Exam Const Vital Signs: 01/24/21 11:50 Temperature 98.6 F Temperature Source Temporal Pulse Rate 92 Respiratory Rate 18 Blood Pressure 160/84 H Blood Pressure Mean 109 Positive well nourished and well developed General Appearance ED: well developed HEENT Reports normocephalic and head/scalp atraumatic Eyes PERRL and EOMs intact bilaterally Neck supple General: Negative for tenderness Chest Wall inspection of chest normal Resp normal respiratory effort and clear to auscultation bilaterally Cardio regular rate and regular rhythm GI non-tender and non-distended Palpation: soft; Negative for guarding or rebound tenderness present no CVA tenderness Narrative: Thick white vaginal discharge consistent with yeast vaginitis. No cervical motion tenderness. No adnexal tenderness. Extremity normal to inspection Neuro oriented x3 Sensorium / Orientation: alert Psych mental status grossly normal MDM MDM MDM Narrative Medical decision making narrative: Patient was given Diflucan. Advised to follow-up with her primary care physician. Advised return to ED for worsening complaints. Discharge Plan Triage Chief Complaint: Complaint ED Provider: Allison Paz Dx/Rx/DC Orders Clinical Impression: Yeast vaginitis Instructions: Candidiasis Vaginal Prescriptions: New fluconazole [Diflucan] 150 mg tablet 150 mg PO .once Qty: 1 RF: 0 No Action cephalexin 500 mg capsule 500 mg PO BID Qty: 10 RF: 0 ondansetron 4 mg tablet,disintegrating 4 mg PO Q6H PRN (Reason: nausea and vomiting) Qty: 14 RF: 0 Primary Care Provider: Care Physician,No Primary Referrals: Rosalba Figueroa MD [STAFF PHYSICIAN] - Care Physician,No Primary [Primary Care Provider] - Disposition Disposition: Home, Self Care
[2021-01-24] MEDS: Fluconazole 100 MG Tablet 150 MG PO (13:51)
[2021-01-24 13:54] VITALS: PULSE 99; RESP 17; O2SAT 96
== END 2021-01-24 13:55 | disposition home or self-care (01) ==
PROVIDERS: Emergency Provider Emergency Medicine
DX: B37.3 Candidiasis of vulva and vagina (principal); F17.210 Nicotine dependence, cigarettes, uncomplicated
CPT/HCPCS: 99283

== ENCOUNTER 2022-02-05 17:22 | Emergency (ER) | payer MEDICAID, SELFPAY ==
[2022-02-05 17:23] VITALS: BP 158/100; PULSE 110; RESP 16; TEMP 36.7; O2SAT 98; BMI 28.8
--- NOTE | 2022-02-05 17:57 | EDS_ITS ---
HPI History of Present Illness Chief Complaint: Lower Extremity Injury Narrative Narrative: 36-year-old female presents with injury to her right ankle that she sustained yesterday. She states she was here in the emergency department with her daughter who had sciatic type. She was sitting on the bed with her right ankle underneath her, wearing ankle bracelets. She went to get off the bed and her foot had fallen asleep. She stepped on her right foot and suffered an inversion injury. She went to step again to catch her balance but her foot did not straighten out, and she fell to the floor. She had a prior bruise on the anterior tibial area laterally that was there before her fall. She denies hitting her head or loss of consciousness. She states she went home and today she woke up this morning with swelling of her right lateral ankle. She denies any foot pain. No other injury. Essentially, she states she is here for an x- ray of her right ankle. [facility] Medical History Odontalgia Threatened in second trimester Allergy/AdvReac Type Severity Reaction Status Date / Time amoxicillin Allergy Itching Verified 02/05/22 17:23 ciprofloxacin [From Cipro] Allergy Unknown Verified 02/05/22 17:23 ciprofloxacin HCl Allergy Unknown Verified 02/05/22 17:23 [From Cipro] sulfamethoxazole Allergy Swelling Verified 02/05/22 17:23 [From Bactrim] trimethoprim [From Bactrim] Allergy Swelling Verified 02/05/22 17:23 Social History Smoking Status: Current every day smoker tobacco type: cigarettes ROS ROS ED ROS Narrative Constitutional: No fever, no chills. HEENT: No sore throat. No neck pain. No loss of vision. No rhinorrhea. Cardiovascular: No chest pain. No palpitations. No pedal edema. Respiratory: No cough, no shortness of breath. Abdominal: No abdominal pain. No nausea. No vomiting. Genitourinary: No dysuria. No hematuria. Musculoskeletal: No myalgias. Right lateral ankle pain and swelling. Worse with weightbearing and walking. Neurologic: No headaches. No dizziness. No lightheadedness. Skin: No rash. No change in color. Psychiatric: No depression. No anxiety. EXAM Physical Exam Narrative Exam Narrative: Afebrile. Vital signs noted. HEENT: Normocephalic. Atraumatic. PERRL, EOMI. Neck soft and supple. No point tenderness or step off. Cardiovascular: Regular rate and rhythm. No murmurs, rubs, or gallops appreciated. Respiratory: No tachypnea. Lungs clear to auscultation bilaterally. Gastrointestinal: Abdomen soft, nontender, with normoactive bowel sounds. No rebound or guarding. Neurological: Awake. Alert. Nonfocal, nonlateralizing. Skin: No rash. Normal color. No pallor. Musculoskeletal: No pedal edema. No proximal fibular head tenderness on the right. Noted ecchymosis which she states was there prior to her injury yesterday. Mild tenderness and swelling right lateral malleolus. No palpable Achilles tendon deficit, negative Casanova test. No pain at base of fifth metatarsal on the right. Palpable dorsalis pedis pulse. Const Vital Signs: 02/05/22 17:23 Temperature 98.1 F Temperature Source Temporal Pulse Rate 110 H Respiratory Rate 16 Blood Pressure 158/100 H Blood Pressure Mean 119 Pulse Ox 98 Oxygen Delivery Method Room Air MDM MDM MDM Narrative Medical decision making narrative: Patient has an ice pack for comfort. She declined oral analgesics. X-rays were obtained of the right ankle and 3 views. I interpreted the x-rays which demonstrates soft tissue swelling but no evidence of fracture. At this point in time, she will be placed in an Aircast and given crutches with teaching. She will take [id number] analgesics as needed and continue ice and elevation at home. She was referred to a primary care provider. Disposition is discharged home in stable condition. Return instructions were reviewed. Radiography Diagnostic Testing: Clinical Impression(s) from Imaging Studies Ankle X-Ray 02/05/22 18:06 IMPRESSION: Soft tissue swelling without fracture or dislocation. Electronically Signed: Yony Madrigal DO at 18:31 EDT Reading Location ID and State: [facility] / [place] Tel [phone], Service support , Discharge Plan Triage Chief Complaint: Lower Extremity Injury ED Provider: Zaire Degroot Dx/Rx/DC Orders Clinical Impression: Ankle sprain, Fall Instructions: ED Ankle Sprain (Adult) Primary Care Provider: Care Physician,No Primary Referrals: Patria Mir DO [Med Staff - Active Staff] - 1-2 Weeks Care Physician,No Primary [Primary Care Provider] - Disposition Disposition: Home, Self Care
--- NOTE | 2022-02-05 18:06 | RAD_ITS ---
STUDY: X-RAY - RIGHT ANKLE REASON FOR EXAM: Female, 36 years old. Swelling and pain after rolling ankle during fall yesterday. TECHNIQUE: 3 view(s) of the ankle. COMPARISON: None. FINDINGS: Normal visualized distal tibia and fibula. Normal medial and lateral malleoli. Normal tibiotalar articulation and ankle mortise. Normal visualized talus and calcaneus. The visualized subtalar, talonavicular, calcaneocuboid and tarsal articulations are normal. There is anterolateral soft tissue swelling suggesting sprain. RAD/Ankle min 3 Views IMPRESSION: Soft tissue swelling without fracture or dislocation. Electronically Signed: Yony Madrigal DO at 18:31 EDT ,
== END 2022-02-05 19:03 | disposition home or self-care (01) ==
PROVIDERS: Emergency Provider Emergency Medicine; Visit Provider Emergency Medicine
DX: S93.401A Sprain of unspecified ligament of right ankle, initial encounter (principal); F17.210 Nicotine dependence, cigarettes, uncomplicated; W01.0XXA Fall on same level from slipping, tripping and stumbling without subsequent striking against object, initial encounter
CPT/HCPCS: 73610; 99284

== ENCOUNTER 2022-09-05 23:16 | Emergency (ER) | payer MEDICAID, SELFPAY ==
[2022-09-05 23:16] VITALS: BP 143/86; PULSE 89; RESP 16; TEMP 36.4; O2SAT 100; BMI 28.6
--- NOTE | 2022-09-05 23:36 | EX.ED.DYSGE1 ---
HPI History of Present Illness Chief Complaint: Other, Pain/Inj Informant: patient Onset/Context/Timing Onset: Weeks (1) Context: Sudden Onset Timing: Continuous Quality: Achiness Location: Volar aspect right wrist Worsened by: Pinching her fingers Relieved by: Nothing Narrative Narrative: Presents with ulceration to the volar aspect of her right distal forearm that has been constant for the past week. Patient states she has some achiness in the area. Patient states it is worse whenever she pinches her index finger and thumb together. Patient states she does repetitive motion at work. Patient denies any paresthesias or weakness. Patient denies any change in color of her fingers. Patient denies any fevers or chills. Patient denies any trauma or injury. [facility] Medical History (Updated 09/05/22 @ 23:[address] Boris Mann DO) Odontalgia Threatened in second trimester Home Medications meloxicam 15 mg tablet 15 mg PO DAILY #10 tabs 09/05/22 [Rx Last Taken Unknown] Allergy/AdvReac Type Severity Reaction Status Date / Time amoxicillin Allergy Itching Verified 02/05/22 17:23 ciprofloxacin [From Cipro] Allergy Unknown Verified 02/05/22 17:23 ciprofloxacin HCl Allergy Unknown Verified 02/05/22 17:23 [From Cipro] sulfamethoxazole Allergy Swelling Verified 02/05/22 17:23 [From Bactrim] trimethoprim [From Bactrim] Allergy Swelling Verified 02/05/22 17:23 Surgical History (Updated 09/05/22 @ 23:[address] Boris Mann DO) History of extraction of renal calculus Social History Smoking Status: Current every day smoker tobacco type: cigarettes ROS ROS ED Constitutional Constitutional ED: Denies chills or fever(s) Eyes Eyes: Denies blurry vision or change in vision ENT ENT ED: Denies rhinorrhea or sore throat Cardiovascular Cardiovascular: Denies chest pain or palpitations Respiratory/Chest Respiratory/Chest: Denies cough or dyspnea Gastrointestinal Gastrointestinal: Denies nausea or vomiting Genitourinary Genitourinary ED: Denies dysuria or hematuria Musculoskeletal Musculoskeletal: Denies back pain or neck pain Integumentary Denies abscess or rash Neurologic Neurologic: Denies headache(s) or weakness Allergic/Immunologic Allergic/Immunologic ED: Denies mouth swelling or urticaria EXAM Physical Exam Const Vital Signs: 09/05/22 23:16 09/05/22 23:29 Temperature 97.5 F L Temperature Source Temporal Pulse Rate 89 Respiratory Rate 16 Respiratory Pattern Normal Blood Pressure 143/86 H Blood Pressure Mean 105 Pulse Ox 100 Oxygen Delivery Method Room Air Positive well nourished and well developed General Appearance ED: well developed and NAD HEENT Reports moist mucous membranes Neck supple and no JVD Extremity Extremity Narrative: There is mild tenderness over the volar aspect of the right wrist. There is a pulsation noted on the ulnar aspect of the right wrist. There is radial pulses are equal bilaterally. Sensation was intact to light touch in all digits. Capillary refills less than 2 seconds in all digits. There is no pallor or cyanosis of the extremities. There is full range of motion of the right wrist, right elbow, and right hand. Strength is 5/5 in the radial, median, and ulnar areas. Neuro oriented x3, CN's II-XII intact bilaterally and no sensory deficits noted Sensorium / Orientation: alert Motor Exam: strength 5/5 throughout Psych mental status grossly normal Skin no wounds and skin turgor normal MDM MDM MDM Narrative Medical decision making narrative: Patient has only mildly elevated blood pressure 143/86. Patient was advised that this is not an emergent condition. Patient was advised that this may be more of an inflammatory condition patient is awake. Patient was given a Velcro wrist splint. Patient was given a prescription for meloxicam. Patient was instructed to follow-up with her primary care physician in 5 to 7 days for further evaluation. Patient understood and was agreeable with the plan. All questions were answered. Discharge Plan Triage Chief Complaint: Other, Pain/Inj ED Provider: Boris Mann Dx/Rx/DC Orders Clinical Impression: Strain of right wrist Instructions: ED Bandage Elastic Wrap Prescriptions: New meloxicam 15 mg tablet 15 mg PO DAILY Qty: 10 0RF Primary Care Provider: Care Physician,No Primary Referrals: aSmmie Vaz MD [Med Staff - Budder] - 5-7 Days Care Physician,No Primary [Primary Care Provider] - Disposition Disposition: Home, Self Care
== END 2022-09-06 00:04 | disposition home or self-care (01) ==
PROVIDERS: Emergency Provider Emergency Medicine; Visit Provider Emergency Medicine
DX: S63.501A Unspecified sprain of right wrist, initial encounter (principal); F17.210 Nicotine dependence, cigarettes, uncomplicated; X58.XXXA Exposure to other specified factors, initial encounter
CPT/HCPCS: 99283

== ENCOUNTER 2023-05-18 07:14 | Observation (INO) | payer MEDICAID, SELFPAY ==
[2023-05-18] VITALS (18 sets, daily range): BP systolic 116–148; BP diastolic 57–82; PULSE 63–86; RESP 16; TEMP 36.2–36.9; O2SAT 99–100; BMI 28.8
[2023-05-18] MEDS: miSOPROStol 200 MCG Tablet 400 MCG VAGINAL ×2 (08:29→11:48)
[2023-05-18 08:45] LABS: Absolute Lymphocyte Count 2.03 X10^3/uL (0.83-4.51); Absolute Neutrophil Count 5.9 X10^3/uL (2.0-7.7); Basophil# 0.06 X10^3/uL; Basophil% 0.7 % (0-1); Eosinophil# 0.19 X10^3/uL; Eosinophils% 2.2 % (0-5); Hematocrit 37.9 % (37-47); Hemoglobin 12.6 g/dL (12.0-15.0); Lymphocyte # 2.03 X10^3/ul (0.83-4.51); Lymphocyte % 23.4 % (19-41); Mean Corp Hgb Conc 33.2 g/dL (32-36); Mean Corpuscular Hgb 29.4 pg (27.0-32.0); Mean Corpuscular Volume 88.3 fL (81-99); Mean Platelet Vol. 9.8 fl (6.2-12.0); Monocyte# 0.42 X10^3/uL; Monocyte% 4.8 % (0-10); NRBC Flagged by Analyzer 0 % (0-5); Neutrophil % 68.1 % (47-70); Platelet Count 269 K/mm3 (150-450); RBC Distribution Width CV 13.8 % (11.6-14.6); RBC Distribution Width SD 44.4 fl (35.1-43.9); Red Blood Count 4.29 M/mm3 (4.2-5.4); White Blood Count 8.7 K/mm3 (4.4-11.0)
--- NOTE | 2023-05-18 08:57 | PCM.HP.OB ---
HPI - General General Date of Admission: 05/18/23 HPI Narrative TONE GARCIA, is a 38 F @ 20 weeks with IUFD who presents for IOL -seen in the office yesterday for routine anatomy ultrasound and found to have IUFD. There were no abnormal findings on the ultrasound. Patient denies any vaginal bleeding, fevers, pain. Patient was given time to consider options for D&E versus an induction of labor patient chose induction of labor. She was counseled on risks of induction of labor including but not limited to infection, bleeding, retained placenta. pt agreeable to proceed. [facility] Medical History (Updated 05/18/23 @ 09:[address] Kristan Rodney MD) Odontalgia Stillborn, normal Threatened in second trimester Home Medications meloxicam 15 mg tablet 15 mg PO DAILY #10 tabs 09/05/22 [Rx Last Taken Unknown] Allergy/AdvReac Type Severity Reaction Status Date / Time amoxicillin Allergy Itching Verified 02/05/22 17:23 ciprofloxacin [From Cipro] Allergy Unknown Verified 02/05/22 17:23 ciprofloxacin HCl Allergy Unknown Verified 02/05/22 17:23 [From Cipro] sulfamethoxazole Allergy Swelling Verified 02/05/22 17:23 [From Bactrim] trimethoprim [From Bactrim] Allergy Swelling Verified 02/05/22 17:23 Surgical History (Updated 09/05/22 @ 23:[address] Boris Mann DO) History of extraction of renal calculus Social History Smoking Status: Former smoker History Elective abortions Hx Para 5 Spontaneous abortions Hx # Term Pregnancies Ectopic pregnancies Hx # Pregnancies Multiple births # of living children Vital Signs Vital Signs Vital Signs: 05/18/23 08:20 05/18/23 08:20 05/18/23 08:20 Temperature 97.3 F L Pulse Rate 80 Blood Pressure 125/82 H BP Systolic 125 BP Diastolic 82 Weight Weight: 81.193 kg Body Mass Index (BMI) 28.8 Physical Exam Narrative Bedside ultrasound: demise confirmed - 20 week fetus. VE: closed and thick Const alert and oriented x3 General Appearance: cooperative HEENT normocephalic GI GI Narrative: Gravid, non tender to palpation. OB / External & Speculum: external exam normal Extremity normal to inspection Skin no rashes or lesions noted Neuro oriented x3 and CN's II-XII intact bilaterally Psych Appearance: grossly normal Labs Labs Labs: Blood Type A NEGATIVE Antibody Screen NEGATIVE Hct 37.9 % (37-47) Hgb 12.6 g/dL (12.0-15.0) Obstetrics Ultrasound Syphilis Total Ab Pending Rubella IgG Antibody 18.0 IU/mL Hep Bs Antigen Negative (Negative) Hepatitis C Ab (EIA) <0.1 s/co ratio (0.0-0.9) Chlamydia DNA (DEB) Negative (Negative) N.gonorrhoeae DNA (DEB) Negative (Negative) HIV 1&2 Antibody Non-Reactive (Nonreactive) Glucose 1 Hr 50 gm 95 mg/dL (70-140) Rhogam given: Yes Assessment & Plan (1) IUFD at 20 weeks or more of gestation: (2) AMA (advanced maternal age) multigravida 35+: (3) Grand multiparity with problem: (4) Tobacco use: PLAN: Plan Admit to L&D Montior TOCO Epidural if requested for pain or IV pain meds reviewed Monitor VS anticipate vaginal delivery- reviewed possible need for D&C for placenta Cytotec 400mc Q3hrs
[2023-05-18 09:37] LABS: Syphilis Antibodies Non-reactive
[2023-05-18] MEDS: Oxytocin 15 Units/NS 250ml 15 UNITS/250 ML IV.SOLN 167 UNITS IV (14:33)
--- NOTE | 2023-05-18 15:00 | EX.PCM.OBRPT ---
Vaginal Delivery Operative Information Date of Procedure: 05/18/23 Pre-Operative Diagnosis: IUFD, 20 weeks Post-Operative Diagnosis: Same Type of Anesthesia: None Estimated Blood Loss: 150 Time of Delivery: 14:16 Findings Description of Procedure: I was called and notified that the patient was delivering. Upon my arrival the fetus was still in the amniotic sac torso and legs were present. Head was still entrapped in the cervix on exam nuchal cords were noted. Nuchal cords were reduced there were 4 tight. With the mother's pushing efforts the head delivered. The fetus was evaluated no obvious anomalies were appreciated. The fetus was intact. It appeared that the fetus was female gender. After delivery the cord was clamped and IV Pitocin was started. The placenta then delivered spontaneously. Upon exam there was a small piece of tissue appreciated at the lower uterine segment this was removed. Bedside ultrasound revealed no obvious signs of retained placenta. Bleeding is appropriate. Presentation: Footling Breech Amniotic Fluid Description: Clear Specimen(s) Removed: 20-week fetus-IUFD. Placenta. Cord Entanglement: - (Around the neck x4 tight) A Gender: Female (1 minute): 0 (5 minute): 0 Post Vaginal Delivery Medications Given After Delivery: IV Pitocin Episiotomy Description: None Laceration: None
--- NOTE | 2023-05-18 15:08 | PLAC_PTH ---
PATIENT: TONE GARCIA LOC: [facility] U#:[id number] AGE/SX: 38/F ROOM: WP1 RE05/18/[address]: Dr. Meagan Weston MD : 1985 BED: 1 DIS: 05/18/2023 SPEC #: [id number] RECD: 05/18/23 18:34 STATUS: DEAN REJael #: [id number] ROSALVA: 05/18/23 15:[address]: Meagan Weston DEPT: SURGICAL PATHOLOGY RECD BY: Rosaline Huddleston ENTERED: 05/21/23 08:17 SP TYPE: PLACENTA OTHR DR: No Primary Care Phys Tissues: Placenta, NOS Procedures: Surgery Specimen Level IV HEADER OPERATION: PRE-OP DIAGNOSIS: IUFD AT 20 weeks TISSUE SUBMITTED: Placenta MICROSCOPIC DIAGNOSIS Placenta: Placental disc - Immature placenta (115 gm). - Focal area of hemorrhage at the peripheral portion of the placenta. Membranes - no pathologic diagnosis. Umbilical cord - three blood vessels and no pathologic diagnosis. SJ:jose 05/22/2023 MICROSCOPIC DESCRIPTION Slides are reviewed. GROSS DESCRIPTION SPECIMEN: PLACENTA / CLINICAL INFORMATION: A. Weight: Not noted B. Gestational Age: 20 weeks C. Sex: Female PLACENTAL WEIGHT (POST FIXATION): 115 gm PLACENTAL DIMENSIONS: 12.0 x 10.0 x 2.0 cm PLACENTAL SHAPE: Usual ovoid PLACENTAL WEIGHT FOR GESTATIONAL AGE: Within 10-99th percentile MEMBRANES - Present A. Insertion: Marginal B. Site of rupture from edge: At margin of placental disc. They are fragmented and the completeness of the placental membrane cannot be assessed. C. Color of membrane: Neri-to D. Abnormalities: None UMBILICAL CORD - Present A. Color: Neri-to B. Insertion: Central C. Length: 30.0 cm D. Diameter: 0.6 to 0.8 cm E. Number of vessels: Three F. Abnormalities: None PLACENTAL DISC - Present A. Color of surface: Neri-to B. surface abnormalities: None C. Maternal surface: Maternal surface is partly disrupted. The completeness of placenta cannot be assessed. D. Attached retro placental clot: No clot. The peripheral portion of the placenta shows focal area of hemorrhage. E. Cut surface: Dark red and spongy F. Lesions: None G. Separate clot: Absent SECTIONS SUBMITTED: 1. Membrane roll 2. Cord, maternal end 3. Cord, end 4. Placental disc, and maternal surfaces 5. Placental disc, and maternal surfaces 6. Placental disc, and maternal surfaces, peripheral portion of placenta, hemorrhagic area SJ:jose 05/21/2023 TC:5 CPT: 61246
--- NOTE | 2023-05-18 15:09 | DCINST_ITS ---
Discharge Instructions Diet Discharge Diet: No restrictions Activity May resume sexual activity in: 6-8 weeks Dressing / Incision Call your doctor if you observe: Fever of 101 or Higher, Inability to urinate, Using more than 1 pad per hour and Uncontrolled pain Follow Up Care Please Follow Up With: Kristan Rodney MD When: 1-2 weeks post and again at 6 weeks post . [phone] Test Results: Test results from this visit will be discussed in further detail at your follow- up appointment, if applicable. Discharge Plan Admission Admit Date/Time: 05/18/23 07:14 Attending Provider: Meagan Weston Primary Care Provider: Care Physician,Elvia Primary Discharge Orders/Prescriptions Prescriptions: No Action meloxicam 15 mg tablet 15 mg PO DAILY Qty: 10 0RF Referrals / Follow Up: Care Physician,No Primary [Primary Care Provider] -
--- NOTE | 2023-05-18 17:00 | NURSING ---
1700- RN IBCLC in room to see pt. Discussion had about the possibility that mother's milk may come in in 3-5 days d/t gestational age of 20 weeks. Pt. states this is her 7th . She has 5 living children, and this is her second loss. Reports that she doesn't remember her milk ever coming in with her previous loss. IBCLC mentioned that if mother's milk comes in, there is support for whatever she chooses to do at that time, whether she wants to dry her milk up, pump and donate, or if she has other plans. Pt. did not state an exact plan at this time. Encouragement and support given. Pt. informed services are available to support her no matter what she chooses to do in regards to milk supply. Pt. appreciative of IBCLC visiting and will reach out if she has any further questions or concerns.
--- NOTE | 2023-05-18 17:23 | CASEMGMT ---
Labor and Delivery Social Work MOB admitted due to IUFD. Sw presented to bedside and met with mother and father of baby. Sw introduced self and offered support. Sw provided parents with literature on Grief and support. Sw utilized active listening and assessed for any needs or concerns at this time. Parents talked about their other children. MOB appeared to be coping appropriately, tearful and receptive to sw support provided. MOB utilizing assistance from home for cremation of baby. Sw provided parents with literature for their review and discussed depression and anxiety. Sw educated parents on DABDA and encouraged linkage to community mental health resources and support if necessary. Stefani Hampton, MITER SAW OPERATOR, W[employer] INSTRUCTOR
[2023-05-18 19:45] LABS: Pathology Specimen OB SEE PATHOLOGY REPORT
== END 2023-05-18 19:29 | disposition home or self-care (01) ==
PROVIDERS: Obstetrics & Gynecology; Admitting Provider Obstetrics & Gynecology; Referring Provider Obstetrics & Gynecology; Visit Provider Obstetrics & Gynecology
DX: O36.4XX0 Maternal care for intrauterine death, not applicable or unspecified (principal); O69.1XX0 Labor and delivery complicated by cord around neck, with compression, not applicable or unspecified; Z3A.20 20 weeks gestation of pregnancy; Z72.0 Tobacco use; O32.8XX0 Maternal care for other malpresentation of fetus, not applicable or unspecified
CPT/HCPCS: 59855; 88307; J2790; 59050; 85025; 86780; 86850; 86900; 86901; 88305; 99221; G0378

== ENCOUNTER 2024-02-08 08:35 | Emergency (ER) | payer MEDICAID, SELFPAY ==
[2024-02-08 08:37] VITALS: BP 111/66; PULSE 77; RESP 16; TEMP 36.4; O2SAT 99; BMI 26.5
--- NOTE | 2024-02-08 09:03 | US_ITS ---
STUDY: FIRST TRIMESTER OBSTETRICAL ULTRASOUND REASON FOR EXAM: Female, 38 years old leakage of fluid, concern for miscarriage LMP: Unknown. TECHNIQUE: Transabdominal and Transvaginal TECHNICAL QUALITY: Adequate. PRIOR ULTRASOUND: None. FINDINGS: There is visualization of a single gestational sac in a normal intrauterine position. The mean sac diameter (MSD) measures 3.7 cm, indicating an estimated gestational age (EGA) of 9 weeks, 0 days. The gestational sac shape is within normal limits. There is a visualized yolk sac. The yolk sac measures 3 mm.. The placenta is non-visualized. There is visualization of a live embryo. The crown-rump length (CRL) measures 2 cm, indicating an estimated gestational age (EGA) of 8 weeks, 3 days. There is demonstrated cardiac activity with a heart rate of 176 bpm. The estimated gestation age (EGA) by LMP is 8 weeks, 5 days. The estimated date of delivery (SERVANDO) by LMP is September 15, 2023. The estimated gestation age (EGA) by US is 8 weeks, 5 days. The estimated date of delivery (SERVANDO) by US is September 14, 2024. The uterus measures 11 cm x 8.9 cm x 7.9 cm. There is a 1.5 cm x 1.2 cm x 1 cm uterine fibroid. The cervix is closed. The right ovary measures 4.1 cm x 2.4 cm x 2.3 cm. There is no right ovarian cyst. There is no visualized right adnexal mass or complex lesion. The left ovary measures 2.9 cm x 2.3 cm x 1.6 cm. There is no left ovarian cyst. There is no visualized left adnexal mass or complex lesion. There is minimal fluid in the cul de sac. US/Init OB < 14Wks US IMPRESSION: Single live intrauterine gestation with a mean gestational age of 8 weeks and 5 days. 1.5 cm x 1.2 cm x 1 cm uterine fibroid. Electronically Signed: Ruddy Huerta MD at 10:57 EDT ,
--- NOTE | 2024-02-08 09:18 | ED.VIS.FEGU ---
HPI HPI - Female History of Present Illness Chief Complaint: Informant: patient Narrative Narrative: Patient is a 38-year-old G8, P5 currently approximately 8 to 10 weeks with last menstrual period in mid November presenting with leakage of fluid. Patient states she woke up and there was clear fluid but gushed out. She does not think it was urine as she went up to the bathroom and had a full urination. She denies any bleeding. Nuys abdominal pain or cramping. She did follow-up at the center about 2 weeks ago where they did see a heartbeat and intrauterine gestation but also small subchorionic hemorrhage. She has appointment next week with [facility] [employer] TEACHER to establish care. Denies any other complaints at this time. Patient is a negative for her blood type. Denies any recent intercourse. PFSH [facility] Medical History Stillborn, normal Threatened in second trimester Odontalgia Home Medications ?Medication ?Instructions ?Recorded ?Last Taken ?Type meloxicam 15 mg tablet 15 mg PO DAILY #10 tabs 09/05/22 Unknown Rx nitrofurantoin 100 mg PO Q12H 5 days #10 caps 02/08/24 Unknown Rx monohydrate/macrocrystals 100 mg capsule (Macrobid) Allergy/AdvReac Type Severity Reaction Status Date / Time amoxicillin Allergy Itching Verified 02/08/24 08:36 ciprofloxacin (From Cipro) Allergy Unknown Verified 02/08/24 08:36 ciprofloxacin HCl (From Allergy Unknown Verified 02/08/24 08:36 Cipro) sulfamethoxazole (From Allergy Swelling Verified 02/08/24 08:36 Bactrim) trimethoprim (From Bactrim) Allergy Swelling Verified 02/08/24 08:36 Surgical History History of extraction of renal calculus Social History Smoking Status: Former smoker ROS ROS ED Constitutional Constitutional ED: Denies chills or fever(s) Respiratory/Chest Respiratory/Chest: Denies cough Gastrointestinal Gastrointestinal: Denies abdominal pain, nausea or vomiting Genitourinary Genitourinary ED: Reports other Details: Reports leakage of fluids, denies vaginal bleeding ; Denies dysuria, hematuria or urinary frequency Neurologic Neurologic: Denies headache(s) EXAM Physical Exam Const Vital Signs: 02/08/24 08:37 02/08/24 10:36 02/08/24 12:00 Temperature 97.5 F L Temperature Source Temporal Pulse Rate 77 81 78 Respiratory Rate 16 17 18 Blood Pressure 111/66 123/68 H 117/66 Blood Pressure Mean 81 86 83 Pulse Ox 99 97 98 Oxygen Delivery Method Room Air Room Air Room Air 02/08/24 12:18 Temperature 98 F Temperature Source Pulse Rate 78 Respiratory Rate 19 H Blood Pressure 117/68 Blood Pressure Mean 84 Pulse Ox 97 Oxygen Delivery Method Positive well nourished and well developed General Appearance ED: well developed and NAD HEENT Reports moist mucous membranes Resp normal respiratory effort and clear to auscultation bilaterally Cardio regular rate and regular rhythm GI normal to inspection, nondistended, normoactive bowel sounds, soft to palpation and non-tender Extremity normal to inspection General Extremety ED: Negative for edema General Extremity: Negative for edema Neuro oriented x3 Sensorium / Orientation: alert Psych mental status grossly normal MDM MDM MDM Narrative Medical decision making narrative: Patient is evaluated for leakage of fluids in early . Denies urinary symptoms and does not think this was urine. Denies any vaginal bleeding or abdominal pain. Patient is in early and we will evaluate for signs of miscarriage, urinary tract infection or other acute pelvic abnormalities. Lab work including CBC is normal. hCG is elevated consistent . Patient is a negative however as she is not having any bleeding I do not think she requires RhoGAM at this time. Urinalysis is consistent with UTI with positive nitrites and 4+ bacteria. Will send for culture and start on Macrobid. Ultrasound shows a single live intrauterine gestation with gestational age of 8 weeks and 5 days as well as uterine fibroid. Patient given reassurance at this time that there does not appear to be any acute abnormalities with the . I do not know how to explain this leakage of fluid this morning but discussed that possibly could have just been urinary incontinence. Patient given return precautions and instructed to follow-up with her [employer]UAL [employer]S TEACHER. Has appointment in 1 week. Patient and significant other verbalized agreement understand this plan. Discharged home in stable condition. Lab Data Labs: Laboratory Results - last 24 hr 02/08/24 02/08/24 09:17 09:19 WBC 10.5 RBC 4.60 Hgb 12.8 Hct 38.7 MCV 84.1 MCH 27.8 MCHC 33.1 RDW Std Deviation 44.7 H RDW Coeff of Keith 14.6 Plt Count 292 MPV 10.0 Immature Gran % (Auto) 0.600 Neut % (Auto) 74.2 H Lymph % (Auto) 17.4 L [place] % (Auto) 5.4 Eos % (Auto) 1.9 Baso % (Auto) 0.5 Absolute Neuts (auto) 7.8 H Absolute Lymphs (auto) 1.83 Nucleated RBC % 0 HCG, Quant 126632 H Urine Color Yellow Urine Clarity Clear Urine pH 7.0 Ur Specific [place] 1.010 Urine Protein Negative Urine Glucose (UA) Normal Urine Ketones Negative Urine Occult Blood 25 H Urine Nitrite Positive H Urine Bilirubin Negative Urine Urobilinogen Normal Ur Leukocyte Esterase 25 H Urine RBC 0 SEEN Urine WBC 0-5 SEEN Ur Squamous Epith Cells 0 SEEN Urine Bacteria 4+ Urine Mucus 0 SEEN Blood Type A NEGATIVE Radiography Diagnostic Testing: Clinical Impression(s) from Imaging Studies Obstetrics Ultrasound 02/08/24 09:03 IMPRESSION: Single live intrauterine gestation with a mean gestational age of 8 weeks and 5 days. 1.5 cm x 1.2 cm x 1 cm uterine fibroid. Electronically Signed: Ruddy Huerta MD at 10:57 EDT Reading Location ID and State: [facility] / [place] , Service support , Discharge Plan Triage Chief Complaint: ED Provider: Malia Arnett Dx/Rx/DC Orders Clinical Impression: UTI (urinary tract infection), First trimester Instructions: UTIs Understanding, ED Prescriptions: New nitrofurantoin monohyd/m-cryst [Macrobid] 100 mg capsule 100 mg PO Q12H 5 Days Qty: 10 0RF Rx Instructions: must administer with a meal/food No Action meloxicam 15 mg tablet 15 mg PO DAILY Qty: 10 0RF Primary Care Provider: Care Physician,No Primary Referrals: Meagan Weston MD [Med Staff - Active Staff] - Keep Brenna appointment Care Physician,No Primary [Primary Care Provider] - Activity Restrictions/Additional Instructions: There is with a good heartbeat in the right spot with no signs of internal bleeding on your ultrasound today. You do have a urinary tract infection. Will treat you for this. It is possible that leakage of fluid was urine this morning. Please follow-up with your MANUAL ARTS TEACHER and return to the emergency room if you have a progression or worsening your symptoms. Print Language: Guyanese Disposition Disposition: Home, Self Care Discharge Date/Time: 02/08/24 12:25
[2024-02-08 09:26] LABS: Mucous, Urine 0 SEEN /hpf (<or=2+); Red Blood Cells-Urine 0 SEEN /hpf (0-5); Squamous Epithelial Cells - UA 0 SEEN /hpf (5-10)
[2024-02-08 09:35] LABS: Absolute Lymphocyte Count 1.83 X10^3/uL (0.83-4.51); Absolute Neutrophil Count 7.8 X10^3/uL (2.0-7.7); Basophil# 0.05 X10^3/uL; Basophil% 0.5 % (0-1); Eosinophils% 1.9 % (0-5); Hematocrit 38.7 % (37-47); Hemoglobin 12.8 g/dL (12.0-15.0); Lymphocyte # 1.83 X10^3/ul (0.83-4.51); Lymphocyte % 17.4 % (19-41); Mean Corp Hgb Conc 33.1 g/dL (32-36); Mean Corpuscular Hgb 27.8 pg (27.0-32.0); Mean Corpuscular Volume 84.1 fL (81-99); Monocyte# 0.57 X10^3/uL; Monocyte% 5.4 % (0-10); NRBC Flagged by Analyzer 0 % (0-5); Neutrophil # 7.83 X10^3/uL (2.7-7.7); Neutrophil % 74.2 % (47-70); Platelet Count 292 K/mm3 (150-450); RBC Distribution Width CV 14.6 % (11.6-14.6); RBC Distribution Width SD 44.7 fl (35.1-43.9); White Blood Count 10.5 K/mm3 (4.4-11.0)
[2024-02-08 09:59] LABS: Color, Urine Yellow (Yellow); Glucose, Dipstick Normal (Normal); Ketone-Dipstick Negative (Negative); Leukocyte Esterase-Dipstick 25 /ul (Negative); Nitrite-Dipstick Positive (Negative); Occult Blood-Urine 25 /ul (Negative); Protein-Dipstick Negative (Negative); Urine Bilirubin Dipstick Negative (Negative); Urine Clarity Clear (Clear); Urine Urobilinogen Normal (Normal)
[2024-02-08 10:05] LABS: hCG Titer Quant., Serum 180350 mIU/mL (1-3)
[2024-02-08 10:06] LABS: Bacteria 4+ /hpf (None Seen); White Blood Cells 0-5 SEEN /hpf (0-5)
[2024-02-08 10:36] VITALS: BP 123/68; PULSE 81; RESP 17; O2SAT 97
[2024-02-08 12:00] VITALS: BP 117/66; PULSE 78; RESP 18; O2SAT 98
[2024-02-08] MEDS: Nitrofurantoin Macrocrystals 100 MG Capsule PO (12:17)
[2024-02-08 12:18] VITALS: BP 117/68; PULSE 78; RESP 19; TEMP 36.6; O2SAT 97
== END 2024-02-08 12:25 | disposition home or self-care (01) ==
PROVIDERS: Emergency Provider Emergency Medicine; Visit Provider Emergency Medicine
DX: O23.41 Unspecified infection of urinary tract in pregnancy, first trimester (principal); D25.9 Leiomyoma of uterus, unspecified; Z3A.08 8 weeks gestation of pregnancy; Z87.891 Personal history of nicotine dependence; O09.521 Supervision of elderly multigravida, first trimester; O42.911 Preterm premature rupture of membranes, unspecified as to length of time between rupture and onset of labor, first trimester; O34.11 Maternal care for benign tumor of corpus uteri, first trimester; O99.891 Other specified diseases and conditions complicating pregnancy
CPT/HCPCS: 76801; 81001; 84702; 85025; 86900; 86901; 87086; 87088; 87186; 99282; A4216

== ENCOUNTER 2024-08-20 13:05 | Emergency (ER) | payer MEDICAID, SELFPAY ==
[2024-08-20 13:06] VITALS: BP 157/89; PULSE 109; RESP 16; TEMP 36.4; O2SAT 98; BMI 31.3
--- NOTE | 2024-08-20 14:34 | ED.VIS.DENTA ---
HPI History of Present Illness Chief Complaint: Dental Narrative Narrative: 39-year-old female past medical history of third trimester , presents with left upper gingival pain that she has had for the last day today and a half. She noticed pain and swelling above tooth #9. She denies any fevers or chills, no exacerbating or alleviating factors. She has pain and soreness of the gum. No current problems with the , and she is supposed to be induced in the next few weeks. [facility] Medical History Stillborn, normal Threatened in second trimester Odontalgia Home Medications ?Medication ?Instructions ?Recorded ?Last Taken ?Type meloxicam 15 mg tablet 15 mg PO DAILY #10 tabs 09/05/22 Unknown Rx nitrofurantoin 100 mg PO Q12H 5 days #10 caps 02/08/24 Unknown Rx monohydrate/macrocrystals 100 mg capsule (Macrobid) cephalexin 500 mg capsule 500 mg PO TID #30 caps 08/20/24 Unknown Rx Allergy/AdvReac Type Severity Reaction Status Date / Time amoxicillin Allergy Itching Verified 08/20/24 13:07 ciprofloxacin (From Cipro) Allergy Unknown Verified 08/20/24 13:07 ciprofloxacin HCl (From Allergy Unknown Verified 08/20/24 13:07 Cipro) sulfamethoxazole (From Allergy Swelling Verified 08/20/24 13:07 Bactrim) trimethoprim (From Bactrim) Allergy Swelling Verified 08/20/24 13:07 Surgical History History of extraction of renal calculus Social History Smoking Status: Former smoker ROS ROS ED ROS Narrative Review of systems positive for left upper gum pain and swelling with tenderness. Positive pain. No fevers or chills, no nausea or vomiting, no other exacerbating or alleviating factors. She is a smoker. EXAM Physical Exam Narrative Exam Narrative: Afebrile. Vital signs noted. Nontoxic-appearing. Inspection of the mouth does show widespread dental decay. There is a gingival abscess at the juncture of the lip and the gingiva above tooth #9 that is fluctuant. No drooling or trismus. Airway patent. No Torsten angina. No facial erythema. Const Vital Signs: 08/20/24 13:06 Temperature 97.6 F L Temperature Source Temporal Pulse Rate 109 H Respiratory Rate 16 Blood Pressure 157/89 H Blood Pressure Mean 111 Pulse Ox 98 Oxygen Delivery Method Room Air MDM MDM MDM Narrative Medical decision making narrative: I do not feel differential diagnosis is applicable here as she has a visualized gingival abscess. I discussed with her incision and drainage with an 18-gauge needle. Lidocaine jelly was applied. She has multiple allergies to antibiotics. She states her allergy to amoxicillin is not itching as listed but she just felt winded. She is in her third trimester for . I do feel that perhaps incision and drainage would be most beneficial. Smoking cessation was discussed. I reviewed her prior medication list, and she has tolerated cephalexin most recently. In discussion with the patient, she prefers that needle aspiration be performed without anesthesia/analgesia. She states she has a high pain tolerance. I confirmed that she did not want lidocaine applied. 18-gauge needle was used to aspirate with return of approximately 2 mL to 3 mL of purulent drainage. Patient tolerated procedure well. At this point in time, as she is a G6, P5 and states that she is to be induced in 9 days, although she is not having any problems with her , I feel she can be discharged to follow-up with her DIRECTOR [employer] SALES. She will also follow-up with a dentist. Return instructions reviewed. Disposition is discharged home in stable condition. Discharge Plan Triage Chief Complaint: Dental ED Provider: Zaire Degroot Dx/Rx/DC Orders Clinical Impression: Gingival abscess, Third trimester Instructions: 3rd Trimester Changes, ED Dental Abscess Prescriptions: New cephalexin 500 mg capsule 500 mg PO TID Qty: 30 0RF No Action meloxicam 15 mg tablet 15 mg PO DAILY Qty: 10 0RF nitrofurantoin monohyd/m-cryst [Macrobid] 100 mg capsule 100 mg PO Q12H 5 Days Qty: 10 0RF Rx Instructions: must administer with a meal/food Primary Care Provider: Care Physician,No Primary Referrals: Care Physician,No Primary [Primary Care Provider] - Activity Restrictions/Additional Instructions: Antibiotics as directed. Follow-up with a dentist as soon as possible. Also follow-up with your DIRECTOR [employer] as scheduled Print Language: Paraguayan Disposition Disposition: Home, Self Care
[2024-08-20 15:28] VITALS: BP 129/78; PULSE 64; RESP 18; TEMP 36.6; O2SAT 99
== END 2024-08-20 15:29 | disposition home or self-care (01) ==
PROVIDERS: Emergency Provider Emergency Medicine; Visit Provider Emergency Medicine
DX: O99.613 Diseases of the digestive system complicating pregnancy, third trimester (principal); O09.523 Supervision of elderly multigravida, third trimester; Z87.891 Personal history of nicotine dependence; K02.9 Dental caries, unspecified; K05.20 Aggressive periodontitis, unspecified; Z3A.00 Weeks of gestation of pregnancy not specified
CPT/HCPCS: 41800; 99282

== ENCOUNTER 2024-08-29 07:04 | Outpatient (CLI) | payer MEDICAID, SELFPAY ==
--- NOTE | 2024-08-29 07:05 | HP_ITS ---
General Date of Admission: 08/29/24 Date of Service: 08/29/24 Chief Complaint: Induction HPI Narrative TONE GARCIA, is a 39 F who presents IOL however due to volume Induction could not be started. She was rescheduled. Reactive NST and normal vital signs [facility] Medical History (Updated 09/12/24 @ 05:[address] Justine Hoyt MD) Anxiety Stillborn, normal Threatened in second trimester Odontalgia Home Medications ?Medication ?Instructions ?Recorded ?Last Taken ?Type vit no.95-ferrous 1 tab PO DAILY 08/29/24 08:00 History fumarate 28 mg-folic acid 800 mcg 1 TAB tablet () nifedipine 30 mg tablet,extended 30 mg PO DAILY #30 tabs 09/05/24 Unknown Rx release 24 hr Allergy/AdvReac Type Severity Reaction Status Date / Time amoxicillin Allergy Anaphylaxis Verified 09/02/24 08:04 ciprofloxacin (From Cipro) Allergy Other Verified 09/02/24 08:04 ciprofloxacin HCl (From Allergy Unknown Verified 08/29/24 07:39 Cipro) sulfamethoxazole (From Allergy Swelling Verified 08/29/24 07:39 Bactrim) trimethoprim (From Bactrim) Allergy Swelling Verified 08/29/24 07:39 Surgical History History of extraction of renal calculus Social History Smoking Status: Light Smoker (<10/day) History Elective abortions Hx Para 6 Spontaneous abortions Hx # Term Pregnancies Ectopic pregnancies Hx # Pregnancies Multiple births # of living children Assessment & Plan (1) 37 weeks gestation of : (2) History of IUFD: (3) AMA (advanced maternal age) multigravida 35+: PLAN: Plan Induction rescheduled
[2024-08-29 07:19] VITALS: BMI 31.8
[2024-08-29 07:32] VITALS: RESP 16; TEMP 36.7
[2024-08-29 07:33] VITALS: BP 119/59; PULSE 81
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
== END 2024-08-29 09:45 | disposition home or self-care (01) ==
LOC: WP 07:21 → WPOUT 09:55 → WP 09:55
PROVIDERS: Referring Provider Obstetrics & Gynecology; Visit Provider Obstetrics & Gynecology
DX: O09.523 Supervision of elderly multigravida, third trimester (principal); Z3A.37 37 weeks gestation of pregnancy
CPT/HCPCS: 59025; 59050; 99221; G0378

== ENCOUNTER 2024-09-02 07:16 | Inpatient (IN) | payer MEDICAID, SELFPAY ==
[2024-09-02] VITALS (38 sets, daily range): BP systolic 128–175; BP diastolic 62–82; PULSE 50–75; RESP 16–18; TEMP 36.5–37.2; O2SAT 96–100; BMI 31.4
[2024-09-02] MEDS: Lactated Ringers 1,000 ML 50 ML IV (07:50)
[2024-09-02 08:13] LABS: Absolute Lymphocyte Count 1.81 X10^3/uL (0.83-4.51); Absolute Neutrophil Count 9.5 X10^3/uL (2.0-7.7); Basophil# 0.07 X10^3/uL; Basophil% 0.6 % (0-1); Eosinophil# 0.18 X10^3/uL; Eosinophils% 1.5 % (0-5); Hematocrit 32.4 % (37-47); Hemoglobin 10.5 g/dL (12.0-15.0); Lymphocyte # 1.81 X10^3/ul (0.83-4.51); Lymphocyte % 14.8 % (19-41); Mean Corp Hgb Conc 32.4 g/dL (32-36); Mean Corpuscular Hgb 26.5 pg (27.0-32.0); Mean Corpuscular Volume 81.8 fL (81-99); Mean Platelet Vol. 10.1 fl (6.2-12.0); Monocyte# 0.52 X10^3/uL; Monocyte% 4.3 % (0-10); NRBC Flagged by Analyzer 0 % (0-5); Neutrophil # 9.52 X10^3/uL (2.7-7.7); Neutrophil % 77.7 % (47-70); Platelet Count 249 K/mm3 (150-450); RBC Distribution Width CV 14.5 % (11.6-14.6); RBC Distribution Width SD 42.1 fl (35.1-43.9); Red Blood Count 3.96 M/mm3 (4.2-5.4); White Blood Count 12.2 K/mm3 (4.4-11.0)
[2024-09-02] MEDS: Oxytocin 15 Units/NS 250ml 15 UNITS/250 ML IV.SOLN 2 UNITS IV (08:46)
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
[2024-09-02 09:42] LABS: Syphilis Antibodies Nonreactive (Nonreactive)
[2024-09-02 09:43] LABS: Amphetamine Urine NEGATIVE (<1000 ng/mL); Barbiturate Urine NEGATIVE (< 200 ng/mL); Benzodiazepine Urine NEGATIVE (< 200 ng/mL); Buprenorphine Urine NEGATIVE (< 200 ng/mL); Cocaine Urine NEGATIVE (< 300 ng/mL); Fentanyl, Urine NEGATIVE; Methadone Urine NEGATIVE (< 300 ng/mL); Opiates Urine NEGATIVE (< 300 ng/mL); Oxycodone, Urine NEGATIVE (< 100 ng/mL); PCP Urine NEGATIVE (< 25 ng/mL); THC Urine NEGATIVE (< 50 ng/mL)
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
--- NOTE | 2024-09-02 17:10 | PCM.HP.OB ---
HPI - General General Date of Admission: 09/02/24 Date of Service: 09/02/24 Chief Complaint: induiction HPI Narrative TONE GARCIA, is a 39-year-old 8 para 5-1-1-5 who presents at 38-2/7 weeks gestation for induction of labor due to history of intrauterine demise. She also has advanced maternal age greater than 40. Obstetrical history significant for 5 full-term vaginal deliveries, 114-week and complete miscarriage and 120-week intrauterine demise. Past medical history significant for anxiety, anemia, kidney stones, urinary tract infections, alcohol abuse she has a history of tobacco use in the past Maternal Data Information Final SERVANDO: 09/14/24 Gestational age: 38 2/7 [facility] Medical History (Updated 09/02/24 @ 17:[address] Amber Sanchez MD) Anxiety Stillborn, normal Threatened in second trimester Odontalgia Home Medications ?Medication ?Instructions ?Recorded ?Last Taken ?Type cephalexin 500 mg capsule 500 mg PO TID tooth abscess #30 08/20/24 Unknown Rx caps vit no.95-ferrous 1 tab PO DAILY 08/29/24 09/01/24 08:00 History fumarate 28 mg-folic acid 800 mcg 1 TAB tablet () Allergy/AdvReac Type Severity Reaction Status Date / Time amoxicillin Allergy Anaphylaxis Verified 09/02/24 08:04 ciprofloxacin (From Cipro) Allergy Other Verified 09/02/24 08:04 ciprofloxacin HCl (From Allergy Unknown Verified 08/29/24 07:39 Cipro) sulfamethoxazole (From Allergy Swelling Verified 08/29/24 07:39 Bactrim) trimethoprim (From Bactrim) Allergy Swelling Verified 08/29/24 07:39 Surgical History History of extraction of renal calculus Social History Smoking Status: Light Smoker (<10/day) History Elective abortions Hx Para 6 Spontaneous abortions Hx # Term Pregnancies Ectopic pregnancies Hx # Pregnancies Multiple births # of living children ROS Constitutional Constitutional: Denies fatigue, fever(s) or malaise Eyes Eyes: Denies change in vision ENT HEENT: Denies dizziness or headache(s) Cardiovascular Cardiovascular: Denies chest pain, dyspnea or lightheadedness Respiratory/Chest Respiratory/Chest: Denies cough or dyspnea Gastrointestinal Gastrointestinal: Denies change in bowel habits Genitourinary Genitourinary: Denies burning urination or genital lesions Integumentary Integumentary: Denies rash Neurologic Neurologic: Denies confusion, dizziness, headache(s), numbness or weakness Vital Signs Vital Signs Vital Signs: 09/02/24 07:31 09/02/24 07:31 09/02/24 07:31 Temperature 97.8 F Temperature Source Temporal Pulse Rate Respiratory Rate 18 Blood Pressure BP Systolic BP Diastolic Pulse Ox 09/02/24 07:34 09/02/24 07:34 09/02/24 08:50 Temperature Temperature Source Pulse Rate 75 Respiratory Rate Blood Pressure 144/75 H 160/72 H BP Systolic 144 160 BP Diastolic 75 72 Pulse Ox 09/02/24 08:50 09/02/24 08:52 09/02/24 08:52 Temperature Temperature Source Pulse Rate 71 64 Respiratory Rate Blood Pressure 160/76 H BP Systolic 160 BP Diastolic 76 Pulse Ox 09/02/24 08:59 09/02/24 08:59 09/02/24 09:00 Temperature Temperature Source Pulse Rate 66 Respiratory Rate Blood Pressure 164/82 H 135/68 H BP Systolic 164 135 BP Diastolic 82 68 Pulse Ox 09/02/24 09:00 09/02/24 10:11 09/02/24 10:11 Temperature Temperature Source Pulse Rate 70 60 Respiratory Rate Blood Pressure BP Systolic BP Diastolic Pulse Ox 100 09/02/24 10:11 09/02/24 10:11 09/02/24 10:11 Temperature 98.6 F Temperature Source Temporal Pulse Rate Respiratory Rate 18 Blood Pressure BP Systolic BP Diastolic Pulse Ox 09/02/24 10:13 09/02/24 10:13 09/02/24 11:03 Temperature Temperature Source Pulse Rate 63 Respiratory Rate Blood Pressure 153/73 H 167/78 H BP Systolic 153 167 BP Diastolic 73 78 Pulse Ox 09/02/24 11:03 09/02/24 11:06 09/02/24 11:06 Temperature Temperature Source Pulse Rate 64 63 Respiratory Rate Blood Pressure 143/70 H BP Systolic 143 BP Diastolic 70 Pulse Ox 09/02/24 12:25 09/02/24 12:25 09/02/24 12:25 Temperature Temperature Source Temporal Pulse Rate 56 L Respiratory Rate Blood Pressure 155/73 H BP Systolic 155 BP Diastolic 73 Pulse Ox 09/02/24 12:25 09/02/24 12:25 09/02/24 13:19 Temperature 98.9 F Temperature Source Pulse Rate Respiratory Rate 18 Blood Pressure 152/72 H BP Systolic 152 BP Diastolic 72 Pulse Ox 09/02/24 13:19 09/02/24 13:19 09/02/24 15:06 Temperature Temperature Source Temporal Pulse Rate 54 L Respiratory Rate 18 Blood Pressure BP Systolic BP Diastolic Pulse Ox 09/02/24 15:06 09/02/24 15:06 09/02/24 15:07 Temperature 98.7 F Temperature Source Pulse Rate 56 L Respiratory Rate 18 Blood Pressure BP Systolic BP Diastolic Pulse Ox 09/02/24 15:07 09/02/24 15:08 09/02/24 15:08 Temperature Temperature Source Pulse Rate 57 L Respiratory Rate Blood Pressure 138/66 H BP Systolic 138 BP Diastolic 66 Pulse Ox 97 09/02/24 16:15 09/02/24 16:15 09/02/24 16:15 Temperature 99.0 F Temperature Source Temporal Pulse Rate Respiratory Rate 18 Blood Pressure BP Systolic BP Diastolic Pulse Ox 09/02/24 16:19 09/02/24 16:19 Temperature Temperature Source Pulse Rate 59 L Respiratory Rate Blood Pressure 157/67 H BP Systolic 157 BP Diastolic 67 Pulse Ox Weight Weight: 88.2 kg Body Mass Index (BMI) 31.4 Physical Exam Const alert and no apparent distress General Appearance: cooperative HEENT normocephalic Resp normal respiratory effort Cardio regular rate GI soft to palpation GI Narrative: gravid, nontender, appropriate for gestational age Extremity no calf tenderness General Extremity: edema Skin no wounds Rashes: No rashes noted Psych activity/motor behavior normal Labs Labs Labs: Blood Type A NEGATIVE Antibody Screen NEGATIVE Hct 32.4 % (37-47) L Hgb 10.5 g/dL (12.0-15.0) L Obstetrics Ultrasound Syphilis Total Ab Nonreactive (Nonreactive) Rubella IgG Antibody 18.0 IU/mL Hep Bs Antigen Negative (Negative) Hepatitis C Ab (EIA) <0.1 s/co ratio (0.0-0.9) Chlamydia DNA (DEB) Negative (Negative) N.gonorrhoeae DNA (DEB) Negative (Negative) HIV 1&2 Antibody Non-Reactive (Nonreactive) Glucose 1 Hr 50 gm 95 mg/dL (70-140) Rhogam given: Yes Assessment & Plan (1) Grand multiparity with problem: PLAN: Risk benefits and alternatives to induction labor M discussed with patient, her questions were answered to her satisfaction she desires to proceed. Estimated weight is less than 4500 g pelvis clinically adequate to expect vaginal delivery. May use routine pain control measures in labor as needed. Pitocin and artificial rupture membranes planned for induction. (2) AMA (advanced maternal age) multigravida 35+: (3) IUFD at 20 weeks or more of gestation: (4) 38 weeks gestation of : (5) High risk multigravida in third trimester:
[2024-09-02] MEDS: Lidocaine 1% (20 ml mdv) 20 ML Vial INFILT (17:50)
--- NOTE | 2024-09-02 17:59 | OB.VAGDELI_ITS ---
Assessment & Plan (1) (spontaneous vaginal delivery): Maternal Data Information Final SERVANDO: 09/14/24 Gestational age: 38 2/7 Vaginal Delivery Maternal Presentation Maternal Presentation: Medically Indicated Induction Type of Induction: Pitocin and Amniotomy Medical Reason for Induction: Other (h/o previous IUFD) Vaginal Delivery Information Procedure Performed: Spontaneous Vaginal Delivery Surgeon/Practitioner: Amber Sanchez Date of Procedure: 09/02/24 Pre-Procedure Diagnosis: labor Post-Procedure Diagnosis: same Type of anesthesia: Local with 1% Lidocaine (15 cc) Estimated Blood Loss: 200 Time of Delivery: 15:39 Findings Description of procedure: A vigorous female was delivered LORRAINE over a first-degree perineal laceration. A loose nuchal cord ?1 was easily reduced. The remainder the was delivered with maternal pushing and gentle traction only in less than 15 seconds. The Pitocin infusion was initiated for active management of the third stage. The cord was clamped and cut after 1 minute. The was attended to by the waiting nursing staff. The placenta was delivered spontaneously and intact. The cervix and vagina were intact. The first-degree perineal lacerations were repaired with 2-0 Vicryl suture in a running standard fashion after obtaining consent. Sponge and needle counts were correct. A vaginal sweep was completed by me. Presentation: LORRAINE Amniotic Membrane Rupture Type: Artificial Amniotic Fluid Description: Clear Placental Delivery Description: Spontaneous Placenta Disposition: [facility] Specimen collected: No Cord Vessel Description: 3 Vessels Cord Entanglement: Around neck x 1, loose Nuchal Cord Compression: Without compression Infant A Gender: Female (Harriet) (1 minute): 8 (5 minute): 8 Delayed Cord Clamping: Yes Cleat Blanker data architect manager: No Post Vaginal Deli Medications given after delivery: IV Pitocin Episiotomy Description: None Laceration: 1st degree Complication Complications: No
[2024-09-02] MEDS: Oxytocin 15 Units/NS 250ml 15 UNITS/250 ML IV.SOLN 83 UNITS IV (18:16)
[2024-09-02 19:57] LABS: Hemoglobin 10.4 g/dL (12.0-15.0); Mean Corp Hgb Conc 33.5 g/dL (32-36); Mean Corpuscular Hgb 27.1 pg (27.0-32.0); Mean Corpuscular Volume 80.7 fL (81-99); Platelet Count 234 K/mm3 (150-450); RBC Distribution Width CV 14.5 % (11.6-14.6); RBC Distribution Width SD 42.2 fl (35.1-43.9); Red Blood Count 3.84 M/mm3 (4.2-5.4); White Blood Count 18.4 K/mm3 (4.4-11.0)
[2024-09-02 20:30] LABS: AST(SGOT) 18 U/L (<=31); Alanine Aminotransfer ALT/SGPT 10 U/L (<=34); Creatinine, Serum 0.51 mg/dL (0.70-1.20); EST Glomerular Filtration Rate 120 (>60); Estimated Creatinine Clearance 162.39 ml/min (50-250)
[2024-09-02 21:29] LABS: Uric Acid 4.2 mg/dL (2.6-6.0)
[2024-09-02] MEDS: Rho(D) Immune Globulin 300 MCG (1500 Unit) Syringe IV (21:48)
[2024-09-02] MEDS: Labetalol 200 MG Tablet PO (23:09)
[2024-09-03] VITALS (14 sets, daily range): BP systolic 131–149; BP diastolic 60–69; PULSE 50–88; RESP 14–17; TEMP 36.5–37; O2SAT 96–99
--- NOTE | 2024-09-03 08:39 | PN_ITS ---
Subjective Subjective patient seen at bedside, doing well. Patient reports good pain control. lochia mild. denies TREVINO, visual changes, bottle feeding. Objective Data Objective Data Vital Signs: Vital Signs Temp Pulse Resp BP Pulse Ox O2 Del Method 98.6 F 61 16 131/63 H 98 Room Air 09/03/24 07:30 09/03/24 07:30 09/03/24 07:30 09/03/24 07:30 09/03/24 07:30 09/03/24 07:30 Oxygen Delivery Method Room Air Weight: 88.2 kg Body Mass Index (BMI) 31.4 Intake & Output: Intake and Output for Last 24 Hours 09/01/24 09/02/24 09/03/24 23:59 23:59 23:59 Intake Total 973.80 / 973.80 Output Total 500 / 500 Balance 473.80 / 473.80 Lab / Micro Data 09/02/24 19:45 09/02/24 19:45 Labs: Laboratory Results - last 24 hr 09/02/24 07:50: Syphilis Total Ab Nonreactive, Blood Type A NEGATIVE, Antibody Screen NEGATIVE 09/02/24 08:20: Urine Opiates Screen NEGATIVE, U Buprenorphine Qual NEGATIVE, Ur Oxycodone Screen NEGATIVE, Urine Methadone Screen NEGATIVE, Urine Fentanyl Screen NEGATIVE, Ur Barbiturates Screen NEGATIVE, Ur Phencyclidine Scrn NEGATIVE, Ur Amphetamines Screen NEGATIVE, U Benzodiazepines Scrn NEGATIVE, Urine Cocaine Screen NEGATIVE, U Cannabinoids Screen NEGATIVE 09/02/24 19:45: WBC 18.4 H, RBC 3.84 L, Hgb 10.4 L, Hct 31.0 L, MCV 80.7 L, MCH 27.1, MCHC 33.5, RDW Std Deviation 42.2, RDW Coeff of Keith 14.5, Plt Count 234, MPV 10.0, Creatinine 0.51 L, Estim Creat Clear Calc 162.39, Est GFR (MDRD) Non- Af 120, Uric Acid 4.2, AST 18, ALT 10, Screen NEGATIVE, Baby's Blood Type O POSITIVE, Baby's DARWIN NEGATIVE Physical Exam Narrative fundus firm. Const alert and oriented x3 General Appearance: cooperative HEENT normocephalic Neck General: normal visual inspection GI soft to palpation and non-distended GI Narrative: Fundus firm Extremity normal to inspection and no calf tenderness Skin no rashes or lesions noted Neuro oriented x3 and CN's II-XII intact bilaterally Psych mental status grossly normal Assessment & Plan Assessment/Plan (1) (spontaneous vaginal delivery): (2) Gestational hypertension: PLAN: Plan PPD# 1 , Doing well Routine care pain mgmt ambulation change labetalol to procardia 30xl daily anticipate dc home tomorrow if bp stable
[2024-09-03] MEDS: NIFEdipine 30 MG Tablet PO (09:10)
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
--- NOTE | 2024-09-03 18:30 | CASEMGMT ---
Social Work Time of intervention: occurring between 1400 - 1815 Called [facility] ([facility]) Juan Antonio Blake ([phone]) regarding referral/ of infant. Juan Antonio indicated social work should call back on day of discharge for the infant. Discussed with [facility] worker need for referral and planning prior to day of discharge. It was agreed that this ad writer would call and make referral via the intake department. Called [facility] at [phone] and spoke with Enedelia in the intake department. Referral provided for this patient and family, based on said agency's current involvement with the other minor children in the family. Brief maternal and history provided. Enedelia reports that [facility] will contact this ad writer with update on plan and disposition regarding family. [facility] Jessica Qi ([phone]) arrived to unit to meet with mother of baby (MOB) and reported father of baby (FOB). Spoke with Jessica after meeting with family. Children services will be looking at the viability of a safety plan for at time of discharge and if this cannot be secured would look at filing for custody of . Jessica reports MOB provided a name of a person for a safety plan, and this person does happen to be a foster parents for [facility] already. This ad writer spoke with engine lathe tender, Dr. Durán, on discharge timeframe of infant. Updated Jessica. This ad writer presented to MOB and FOB's room to check-in after the meeting with children services, and provide additional resources on mood and anxiety disorders. MOB holding baby upon social work manager entering the room, appearing tearful. FOB also appearing tearful. MOB and FOB expressed frustration with the possibility of children services seeking custody of the infant, and expressed not understanding due to the FOB not living in the home and the parents being from each other. MOB talked about the safety planning option as well. MOB expressed frustration about not needing a safety plan for self, due to MOB reporting never to have been accused of neglect or misconduct towards her children. While this ad writer was talking with the parents and providing supportive listening, [facility] Qi back to the room to provide additional update. [facility] asked MOB and FOB for permission to discuss with this ad writer in the room, to which the MOB expressed in the affirmative. [facility] shared that identified person for safety plan is not agreeable to a safety plan, though is agreeable to care for infant if placed through foster care via [facility]. [facility] asked MOB and FOB to consider whether there are any other persons who the parents would feel comfortable with for a safety plan. MOB and FOB reported to need time to consider this, with FOB focusing on not having a lot of time to think about this. [facility] explained that working within the timeframe of hospitalization, so this does limited the timeframe. MOB expressed to [facility] frustrations, and [facility] listened in a supportive way. This ad writer recapped what needs to be done, and MOB/FOB agreed to work on identifying other safety plan options. MOB will call or text [facility] if other names are identified. MOB also indicated understanding that [facility] would seek temporary custody of if cannot identify a safety plan, and did voice acceptance and comfort knowing who the foster mother could be (Elza who MOB [facility] at [facility]). [facility] plans to be back to hospital in the morning on 09.04.24, for further discuss with MOB and FOB disposition planning for . Spoke with [facility]'s nurse regarding MOB's medical status and due to blood pressure issues, and medication adjustments being made the plan now is for MOB to stay until Sunday09.05.24. This ad writer updated engine lathe tender, Dr. Durán who is agreeable to plan for baby to remain in hospital until MOB is discharged. This ad writer called [facility] [employer] and left message with discharge timeframe for MOB and baby. This ad writer then received call from MOB around 1800 via work phone to state that figured out another options for a safety plan: MOB's half sister. Reports the half sister is even willing to stay at MOB's home with MOB and infant. MOB is notifying [facility]. Handoff to MELINDA Otero for hospital social work needs starting 09.04.24. Plan: MOB will discharge home when medically ready. [facility] involved with this family, looking at safety plan versus seeking emergency temporary custody. MOB is aware of of [facility] involvement and planning. [facility] SW to continue to follow and assist as indicated. -FREDDIE Goldberg
[2024-09-04] VITALS (17 sets, daily range): BP systolic 126–162; BP diastolic 61–82; PULSE 61–87; RESP 15–18; TEMP 36.3–37.1; O2SAT 93–99
--- NOTE | 2024-09-04 08:19 | PCM.PN.OB ---
Subjective Subjective Doing well. Ambulating and voiding without difficulty. Mild lochia. Bottle feeding. Elevated BP. On procardia now Objective Data Objective Data Vital Signs: Vital Signs Temp Pulse Resp BP Pulse Ox O2 Del Method 97.7 F L 64 15 146/68 H 98 Room Air 09/04/24 02:00 09/04/24 02:00 09/04/24 02:00 09/04/24 02:00 09/04/24 02:00 09/04/24 02:00 Oxygen Delivery Method Room Air Weight: 88.2 kg Body Mass Index (BMI) 31.4 Intake & Output: Intake and Output for Last 24 Hours 09/02/24 09/03/24 09/04/24 23:59 23:59 23:59 Intake Total 973.80 / 973.80 Output Total 500 / 500 Balance 473.80 / 473.80 Lab / Micro Data 09/02/24 19:45 09/02/24 19:45 ROS Constitutional Constitutional: Denies headache(s) Cardiovascular Cardiovascular: Denies chest pain or dyspnea Gastrointestinal Gastrointestinal: Denies nausea or vomiting Genitourinary Genitourinary: Denies dysuria Physical Exam Const alert, oriented x3 and no apparent distress General Appearance: cooperative and comfortable Eyes PERRL and EOMs intact bilaterally Resp normal respiratory effort GI soft to palpation and non-tender Uterus Palpation: uterus fundus firm ( below umbilicus) Extremity normal to inspection and full ROM Neuro oriented x3 and CN's II-XII intact bilaterally Psych mental status grossly normal Assessment & Plan (1) Gestational hypertension: QUALIFIERS: Trimester: third trimester Qualified Code(s): O13.3 - Gestational [-induced] hypertension without significant proteinuria, third trimester (2) (spontaneous vaginal delivery): PLAN: Plan Monitor BP. Procardia 30 xl
[2024-09-04] MEDS: NIFEdipine 30 MG Tablet PO (08:47)
--- NOTE | 2024-09-04 15:44 | CASEMGMT ---
Labor and Delivery Date: 09/04/24 Time: 1430- ongoing Assigned yarn dry room worker at [facility], Jessica Yoo, presented to unit and asked to meet with mother of baby (MOB- Crystol). Sw accompanied Ms. Yoo to MOB's bedside. Sw also introduced self to MOB and father of baby (FOB- Dinesh). Sw informed parents that this sw'er will be on unit going forward and should they need anything to ask to talk to sw. Parents agreed. Sw then introduced Ms. Yoo to parents. After her conversation with parents, Ms. Yoo informed sw that parents agreed to a safety plan, and baby will be discharged with kinship providers: Nadya and Ector Otto when she is ready for discharge. Mayra stated that discharge has tentatively been set for MOB and baby for tomorrow (09/05). Ms. Yoo stated that Nadya should be notified at ([phone]) to be informed of discharge time. Sw obtained copy of safety plan and placed in MOB and baby chart. MOB and baby tentative discharge tomorrow. Parents and [facility] have agreed on a safety plan that identifies baby will be discharged to kinship providers (Ector and Nadya Otto) and remain in MOB custody. No other needs, concerns at this time. Stefani Hampton, NUT CHOPPER, BALANCE ASSEMBLER
[2024-09-05 04:58] VITALS: PULSE 66; O2SAT 98
[2024-09-05 04:59] VITALS: BP 104/56; PULSE 64; PULSE 70; RESP 16; TEMP 36.6; O2SAT 98
--- NOTE | 2024-09-05 06:27 | PCM.PN.OB ---
Subjective Subjective Doing well. Ambulating and voiding without difficulty. Mild lochia. Bottle feeding. BP stable today. Objective Data Objective Data Vital Signs: Vital Signs Temp Pulse Resp BP Pulse Ox O2 Del Method 98 F 64 16 104/56 L 98 Room Air 09/05/24 04:59 09/05/24 04:59 09/05/24 04:59 09/05/24 04:59 09/05/24 04:59 09/05/24 04:59 Oxygen Delivery Method Room Air Weight: 88.2 kg Body Mass Index (BMI) 31.4 Lab / Micro Data 09/02/24 19:45 09/02/24 19:45 ROS Constitutional Constitutional: Denies headache(s) Cardiovascular Cardiovascular: Denies chest pain or dyspnea Gastrointestinal Gastrointestinal: Denies nausea or vomiting Genitourinary Genitourinary: Denies dysuria Physical Exam Const alert, oriented x3 and no apparent distress General Appearance: cooperative and comfortable Eyes PERRL and EOMs intact bilaterally Resp normal respiratory effort GI soft to palpation and non-tender Uterus Palpation: uterus fundus firm ( below umbilicus) Extremity normal to inspection and full ROM Neuro oriented x3 and CN's II-XII intact bilaterally Psych mental status grossly normal Assessment & Plan (1) Gestational hypertension: QUALIFIERS: Trimester: third trimester Qualified Code(s): O13.3 - Gestational [-induced] hypertension without significant proteinuria, third trimester (2) (spontaneous vaginal delivery): PLAN: Plan Discharge home. Follow up Sunday in office for bp check
--- NOTE | 2024-09-05 06:28 | PCM.DC.SUM ---
Providers Date of Admission: 09/02/24 Date of Discharge: 09/05/24 Primary Care Physician: No Primary Care Phys Reason For Visit: VAGINAL DELIVERY Diagnosis Discharge Diagnosis (1) Gestational hypertension: Status: Acute Code(s): O13.9 - Gestational [-induced] hypertension without significant proteinuria, unspecified trimester Qualifiers: Trimester: third trimester Qualified Code(s): O13.3 - Gestational [-induced] hypertension without significant proteinuria, third trimester (2) (spontaneous vaginal delivery): Status: Acute Code(s): O80 - Encounter for full-term uncomplicated delivery Plan Discharge home. Follow up Sunday in office for bp check Medications at Discharge Home Medications vit no.95-ferrous fumarate 28 mg-folic acid 800 mcg tablet () 1 tab PO DAILY 08/29/24 nifedipine 30 mg tablet,extended release 24 hr 30 mg PO DAILY #30 tabs 09/05/24 Hospital Course Operations None Procedures None Summary of Care Provided Minutes Spent on Discharge: 20 Hospital Course: IOL with . Bottle feeding. complicated but HTN. Treated with procardia. Physical Exam Const alert and no apparent distress Narrative: Fundus firm, below umbilicus. Weight / BMI Weight Weight: 88.2 kg Body Mass Index (BMI) 31.4 ABG / Lab / Microbiology Data 09/02/24 19:45 09/02/24 19:45 D/C Instructions May resume sexual activity in: 6 weeks DC O2, CPAP, BIPAP Needs Home O2 Discharge instructions: No Please Follow Up With: Amber Sanchez MD When: Follow up with our office in 1-2 and 6 weeks or as needed. [phone] Meaningful Use Info Meaningful Use Meaningful Use Diagnoses (Choose all that apply): None applicable Ischemic Stroke Statin Dosing Therapy Reference: STATIN DOSE THERAPY REFERENCE: * Patients > 75 years receive moderate or high dose statin therapy. * Patients 75 years or YOUNGER should receive HIGH intensity statin dose unless contraindicated. You will be required to document reason for non-treatment if statin daily dose does not meet guidelines. HIGH DOSE STATIN THERAPY DAILY Atorvastatin > than or = to 40 mg Rosuvastatin > than or = to 20 mg Amlodipine + Atorvastatin > than or = to 2.5/40 mg Ezetimibe + Simvastatin 10/80 mg Simvastatin 80mg Discharge Plan Admission Admit Date/Time: 09/02/24 07:16 Primary Reason for Your Visit: labor Attending Provider: Amber Sanchez Primary Care Provider: Care Physician,No Primary Discharge Orders/Prescriptions Prescriptions: New nifedipine 30 mg Tablet Extended Release 24hr 30 mg PO DAILY Qty: 30 0RF Continued PNV cmb#95-ferrous fumarate-FA [] 28 mg iron- 800 mcg tablet 1 tab PO DAILY Discontinued cephalexin 500 mg capsule 500 mg PO TID Qty: 30 0RF Patient Comments: pt didnt want to take it Referrals / Follow Up: Care Physician,No Primary [Primary Care Provider] - Disposition Disposition (needs filled in before D/C Order can be placed): Home, Self Care
[2024-09-05 07:24] VITALS: BP 121/70; PULSE 85
[2024-09-05 07:28] VITALS: BP 121/70; PULSE 85; RESP 16; TEMP 36.7; O2SAT 97
[2024-09-05 10:56] VITALS: BP 138/74; PULSE 86
[2024-09-05] MEDS: NIFEdipine 30 MG Tablet PO (10:57)
[2024-09-05 10:59] VITALS: BP 138/74
--- NOTE | 2024-09-05 11:20 | CASEMGMT ---
Labor and Delivery Date: 09/06/24 Time: 0900- ongoing Sw spoke to early morning babysitter who confirmed that baby is medically ready for discharge, and there is a discharge order in chart for mother of baby (MOB- Gifty). Sw called sister- in-law, Nadya Otto, who is identified safety plan/ kindship placement for baby and informed her that baby is ready for discharge. Nadya agreed to present to hospital at 1100 with proper identification for discharge. - Sw presented to bedside and spoke to MOB and FOB who were also planning for discharge. MOB states that she has car seat ready for baby for Nadya to use, and bedside RN provided several bottles of formula for baby until [facility] is able to get Nadya connected to [facility] for baby. 1113: Nadya presented to unit, provided proper identification and prepared to leave with baby. Sw informed bedside RN that Nadya and MOB/ FOB are not permitted to leave the unit at the same time, per [facility]. Nadya to leave first, followed by parents to ensure they are not following her. Bedside RN expressed understanding. Plan: Both MOB and baby ready for discharge today. Safety plan identified for baby indicating that baby to be discharged to Nadya Riverasuma who is providing kinshoip placement for baby with [facility] overseeing. Sw also updated [facility] worker, Jessica Yoo that MOB and baby discharged. No ongoing needs or concerns at this time. Stefani Hampton, BIOMEDICAL EQUIPMENT SPECIALIST, TRAFFIC LINE PAINTER
--- NOTE | 2024-09-10 16:45 | NURSING ---
Follow Up Phone Call: Phone call not completed due to patient requesting no call.
--- NOTE | 2024-09-12 05:57 | OB.TRI.HP_ITS ---
HPI - General General Date of Admission: 08/29/24 Date of Service: 08/29/24 Chief Complaint: Induction HPI Narrative TONE GARCIA, is a 39 F who presents IOL however due to volume Induction could not be started. She was rescheduled. Reactive NST and normal vital signs [facility] Medical History (Updated 09/12/24 @ 05:[address] Justine Hoyt MD) Anxiety Stillborn, normal Threatened in second trimester [place] Home Medications ?Medication ?Instructions ?Recorded ?Last Taken ?Type vit no.95-ferrous 1 tab PO DAILY 09/01/24 08:00 History fumarate 28 mg-folic acid 800 mcg 1 TA B tablet () nifedipine 30 mg tablet,extended 30 mg PO DAILY #30 ta bs 09/05/24 Unknown Rx release 24 hr Allergy/AdvReac Type Severity Reaction Status Date / Time amoxicillin Allergy Anaphylaxis Verified 09/02/24 08:04 ciprofloxacin (From Cipro) Allergy Other Verified 09/02/24 08:04 ciprofloxacin HCl (From Allergy Unknown Verified 08/29/24 07:39 Cipro) sulfamethoxazole (From Allergy Swelling Verified 08/29/24 07:39 Bactrim) trimethoprim (From Bactrim) Allergy Swelling Verified 08/29/24 07:39 Surgical History History of extraction of renal calculus Social History Smoking Status: Light Smoker (<10/day) History Elective abortions Hx Para 6 Spontaneous abortions Hx # Term Pregnancies Ectopic pregnancies Hx # Pregnancies Multiple births # of living children Assessment & Plan (1) 37 weeks gestation of : (2) History of IUFD: (3) AMA (advanced maternal age) multigravida 35+: PLAN: Plan Induction rescheduled
== END 2024-09-05 11:00 | disposition home or self-care (01) | DRG 560 ==
PROVIDERS: Obstetrics & Gynecology; Admitting Provider Obstetrics & Gynecology; Referring Provider Obstetrics & Gynecology; Visit Provider Obstetrics & Gynecology
DX: O69.81X0 Labor and delivery complicated by cord around neck, without compression, not applicable or unspecified (principal); Z37.0 Single live birth; F17.200 Nicotine dependence, unspecified, uncomplicated; O70.0 First degree perineal laceration during delivery; O13.5 Gestational [pregnancy-induced] hypertension without significant proteinuria, complicating the puerperium; O99.334 Smoking (tobacco) complicating childbirth; Z88.0 Allergy status to penicillin; Z3A.38 38 weeks gestation of pregnancy; Z87.59 Personal history of other complications of pregnancy, childbirth and the puerperium
CPT/HCPCS: 59025; 59050; 80307; 82565; 84450; 84460; 84550; 85025; 85027; 85461; 86780; 86850; 86900; 86901; 90384; 99221; G0378; J2790; J2791